=== PATIENT | male | born 1955 | race Caucasian/White ===

== ENCOUNTER 2021-09-30 10:54 | Emergency (ER) | payer SELFPAY ==
--- OUTSIDE RECORDS SUMMARY | 2021-09-30 10:58 | XMS REPORT | Continuity of Care Document ---
:1955 Author Organization [facility] Address [address] [place] [address] Care Team Providers Name Role Phone FOUND, PCP NOT Primary Care Physician Unavailable IP Attending Clinician Unavailable Advance Directives Directive Decision Effective Date Termination Date Comments Sour ce Yes N/A [facility] Problems This patient has no known problems. Allergies, Adverse Reactions, Alerts Allergy Allergy Status Severity Reaction(s) Onset Inactive Treating Comm ents Source Name Type Date Date Clinician NO Allergy Active Mild [facility] KNOWN to 05-09 S DRUG substanc 00:00: Health ALLERGY e 00 Social History Social Habit Start Date Stop Date Quantity Comments Source History of tobacco [facility] [place] use Sex Ass[birth year] Male [facility] 00:00:00 00:00:00 Smoking Status Start Date Stop Date Source Smokes tobacco daily (finding) 2021-05-16 22:03:00 [facility] [place] Medications Ordered Filled Start Stop Current Ordering Indication Dosage Frequency Signature Comments Components Source Medication Medication Date Date Medication? Clinician (SIG) Name Name Ketorolac 2019-0 2020- No 10mg Every 8 CH[facility] LALIT Tromethamin - 05-26 Hours S e (Toradol) 12:36: 00:00 Healt h 10 Mg TAB 00 :00 Ciprofloxac 2020-0 2020- No 500mg Every 12 [facility] in (Cipro) 5- 05-29 Hours S 500 Mg TAB 12:33: 00:00 Health 00 :00 Ondansetron 2020-0 No 4mg Every 8 CH[facility] ISTU Hcl (Zofran 5-21 Hours as S Odt) 4 Mg 12:04: needed for He alth TAB.RAPDIS 00 Nausea / Vomiting Acetaminoph 2020-0 2020- No 1 Every 6 CH RISTU en/Codeine 5-21 06-21 Hours as S Phosphate 12:04: 00:00 needed for H ealth (Tylenol 00 :00 Pain #3) 1 Tab TAB Meclizine No 25mg Three [facility] Hcl 8-22 Times A S (Antivert) 21:32: Day Health 25 Mg TAB 00 Prednisone No 1 As [facility] (Prednisone 04-08 Directed S Dose-Gurjit) 21:32: Health 10 Mg TAB 00 Azithromyci 2018- No 1 As EFRAIN TU n 04-08 Directed S (Zithromax 21:32: 00:00 Health Z-Gurjit) 6 00 :00 Tab/Pkg TAB Clindamycin No 3 Four Times [facility] Hcl 3-11 Daily S (Cleocin) 19:48: Health 150 Mg CAP 00 Erythromyci No 1 Four Times [facility] n 3-11 Daily S (Erythromyc 19:48: Health in 0.5% Oph 00 Oint) 1 Applic/Gm OINT Clindamycin 2016- No 3 Four Times [facility] Hcl 3-11 03-11 Daily S (Cleocin) 19:40: 00:00 Health 150 Mg CAP 00 :00 Erythromyci 2017- No 1 Four Times [facility] n 3-11 03-11 Daily S (Erythromyc 19:40: 00:00 Healt h in 0.5% Oph 00 :00 Oint) 1 Applic/Gm OINT Amlodipine No 5mg Every ANGUS U Besylate 8-17 Morning S (Norvasc) 20:09: Health 2.5 Mg TAB 00 Amoxicillin No 500mg Three CHRI LALIT (Amoxil) 5-06 Times A S 500 Mg CAP 18:50: Day Health 00 Acetaminoph 2008-08 No 1 Every 4 - C HRISTU en/Hydrocod 0-13 6 Hours S one Bitart 13:37: Health (Vicodin 00 5-500) 1 Tab TAB Ciprofloxac 2008-08 No [drp] Three CHRI LALIT in Hcl 0-13 Times A S (Ciloxin 13:36: Day Health 0.3% Oph 00 Soln) 75 Drop/5 Ml SOLN Hydrochloro No 25mg Every EFRAIN TU thiazide 8-06 Morning S (Hydrodiuri 05:15: Health l) 25 Mg 00 TAB Acetaminoph No 1 Every 4 - C HRISTU en/Hydrocod 8-06 6 Hours S one Bitart 04:48: Health (Lortab 00 7.5-500) 1 Tab TAB Amlodipine No 1 Daily ANGUS U Besylate 8-06 S (Norvasc) 04:47: Health 10 Mg TAB 00 Loratadine 2007-08 No 1 Daily ANGUS U (Claritin) 1 S 10 Mg TAB 06:34: Health 00 Methylpredn 2007-08 No 1 As ANGUS U isolone - Directed S (Medrol 06:34: Health Pack) 21 00 Tab/Dspk TAB Omeprazole 2007-08 No 40mg Daily ANGUS U (Prilosec) 09-12 S 40 Mg CPDR 06:34: Health 00 Triamcinolo 2007-08 No 1 Bid Prn [facility] I[facility]U ne 09-12 S Acetonide 06:33: Health (Kenalog 00 0.5% Cream) 1 Applic/Gm CR Amlodipine 2006-08 No 1 Every ANGUS U Besylate 2-15 Morning S (Norvasc) 5 14:57: Health Mg TAB 00 Vital Signs Vital Name Observation Time Observation Value Comments Source BP Diastolic 2021-05-17 00:05:00 87 mm[Hg] [facility] BP Systolic 2021-05-17 00:05:00 135 mm[Hg] [facility] Respiratory rate 2021-05-16 21:24:00 20 /min [facility] Body Temperature 2021-05-16 21:24:00 98.5 [degF] [facility] BP Diastolic 2021-05-16 21:24:00 92 mm[Hg] [facility] BP Systolic 2021-05-16 21:24:00 125 mm[Hg] [facility] Heart Rate 2021-05-16 21:24:00 81 /min [facility] BP Diastolic 2021-05-16 21:10:00 92 mm[Hg] [facility] BP Systolic 2021-05-16 21:10:00 125 mm[Hg] [facility] Heart Rate 2021-05-16 21:10:00 81 /min [facility] Respiratory rate 2021-05-16 21:10:00 20 /min [facility] Body Temperature 2021-05-16 21:10:00 98.5 [degF] [facility] Procedures Procedure Date / Time Performed Performing Clinician Robert e Computed tomography of 2021-05-16 00:00:00 [facility] lungs with intravenous contrast Computed tomography of 2021-05-16 00:00:00 [facility] abdomen and pelvis with contrast Encounters Start End Encounter Admission Attending Care Care Encounter Source Date/Time Date/Time Type Type Clinicians Facility Department ID 2020-01-07 Inpatient BIANKA CARLTON [id number] [facility] 10:37:00 [id number] [facility] 2020-01-06 Inpatient BIANKA CARLTON [id number] [facility] 10:27:00 [id number] [facility] 2021-05-16 2021-05-17 Emergency ER IP, LORENZO CARLTON [id number] [facility] 21:47:00 00:05:00 [id number] [facility] 2021-05-16 2021-05-17 Departed YEIMY CARLTON [id number] [facility] 21:47:00 00:05:[address] [facility] Results Test Description Test Time Test Comments Results Result Comments Source Automated blood leukocyte count (number/volume) 2021-05-16 2 1:40:00 Test Item Value Reference Range Interpretation Comme nts White Blood Count (test code = 6690-2) 9.0 4.5-11.5 [facility] erythrocytes automated count (number/volume)2021-05-16 21:40:00 Test Item Value Reference Range Interpretation Comments Red Blood Count (test code = 789-8) 4.86 4.4-6.2 [facility] hemoglobin measurement (mass/volume)2021-05-16 21:40:00 Test Item Value Reference Range Interpretation Comments Hemoglobin (test code = 718-7) 14.2 13.0-17.5 [facility] HealthAutomated blood hematocrit (volume fraction)2021-05-16 21:40:00 Test Item Value Reference Range Interpretation Comments Hematocrit (test code = 4544-3) 43.3 39.0-52.5 [facility] HealthAutomated erythrocyte mean corpuscular volume (MCV) measurement 2021-05-16 21:40:00 Test Item Value Reference Range Interpretation Comments Mean Corpuscular Volume (test code = 89 80-94 787-2) [facility]Automated erythrocyte mean corpuscular hemoglobin (mass per erythrocyte)2021-05-16 21:40:00 Test Item Value Reference Range Interpretation Comments Mean Corpuscular Hemoglobin (test code 29.2 27.0-33.0 = 785-6) [facility] HealthAutomated erythrocyte mean corpuscular hemoglobin concentration measurement (mass/volume)2021-05-16 21:40:00 Test Item Value Reference Range Interpretation Comments Mean Corpuscular Hemoglobin Concent 32.8 33.0-37.0 (test code = 786-4) [facility] HealthAutomated erythrocyte distribution width [id number] 21:40:00 Test Item Value Reference Range Interpretation Comments Red Cell Distribution Width (test code 13.5 10.7-14.5 = 788-0) [facility] HealthAutomated blood platelet count (count/volume)2021-05-16 21:40:00 Test Item Value Reference Range Interpretation Comments Platelet Count (test code = 777-3) 234 150-450 [facility] HealthAutomated blood platelet mean volume [id number] 21:40:00 Test Item Value Reference Range Interpretation Comments Mean Platelet Volume (test code = 10.6 5.7-10.7 73455-9) [facility] HealthAutomated blood neutrophil count as percentage of total uehvzywdxp8082-94-28 21:40:00 Test Item Value Reference Range Interpretation Comments Neutrophils (%) (Auto) (test code = 62 47-75 770-8) [facility] HealthAutomated blood immature granulocyte count as percentage of total hqmpuwnypb5668-32-50 21:40:00 Test Item Value Reference Range Interpretation Comments Immature Granulocyte % (Auto) (test 0 0-0 code = 14325-9) [facility] HealthAutomated blood lymphocyte count as percentage of total hptxiydvcr0952-33-05 21:40:00 Test Item Value Reference Range Interpretation Comments Lymphocytes (%) (Auto) (test code = 28 25-44 736-9) [facility] HealthAutomated blood monocyte count as percentage of total leukocytes 2021-05-16 21:40:00 Test Item Value Reference Range Interpretation Comments Monocytes (%) (Auto) (test code = 7 3-10 5905-5) [facility] HealthAutomated blood eosinophil count as percentage of total rtayljdklu3037-17-32 21:40:00 Test Item Value Reference Range Interpretation Comments Eosinophils (%) (Auto) (test code = 3 0-7 713-8) [facility] HealthAutomated blood basophil count as percentage of total leukocytes 2021-05-16 21:40:00 Test Item Value Reference Range Interpretation Comments Basophils (%) (Auto) (test code = 1 0-1 706-2) [facility] HealthAutomated blood nucleated erythrocyte count as percentage of total nrcrveqvmd6748-76-58 21:40:00 Test Item Value Reference Range Interpretation Comments Nucleated Red Blood Cells % (test code 0.0 0-0.2 = 22519-0) [facility] HealthAutomated blood neutrophil count (number/volume)2021-05-16 21:40:00 Test Item Value Reference Range Interpretation Comments Neutrophils # (Auto) (test code = 5.6 1.3-6.7 751-8) [facility] HealthAutomated blood immature granulocyte count as percentage of total etxxavsljo8143-14-29 21:40:00 Test Item Value Reference Range Interpretation Comments Immature Granulocyte # (Auto) (test 0.0 0.0-0.0 code = 99066-9) [facility] HealthAutomated blood lymphocyte count (number/volume)2021-05-16 21:40:00 Test Item Value Reference Range Interpretation Comments Lymphocytes # (Auto) (test code = 2.5 1.4-4.1 731-0) [facility] (number/volume)2021-05-16 21:40:00 Test Item Value Reference Range Interpretation Comments Monocytes # (Auto) (test code = 742-7) 0.6 0-1.3 [facility] HealthAutomated blood eosinophil [id number] 21:40:00 Test Item Value Reference Range Interpretation Comments Eosinophils # (Auto) (test code = 0.2 0-0.8 711-2) [facility] HealthAutomated blood basophil count (number/volume)2021-05-16 21:40:00 Test Item Value Reference Range Interpretation Comments Basophils # (Auto) (test code = 704-7) 0.1 0-0.1 [facility] HealthAutomated blood nucleated erythrocyte count (count/volume) 2021-05-16 21:40:00 Test Item Value Reference Range Interpretation Comments Nucleated Red Blood Cells # (test code 0.00 0-0.01 = 771-6) [facility] HealthService comment [id number] 21:40:00 Test Item Value Reference Range Interpretation Comments Manual Differential (test code = Not Ind 8265-1) [facility] HealthProthrombin [id number] 21:40:00 Test Item Value Reference Range Interpretation Comments Prothrombin Time (test code = 5902-2) 11.9 9.4-12.5 [facility] HealthINR [id number] 21:40:00 Test Item Value Reference Range Interpretation Comments Prothromb Time International Ratio 1.1 0.8-1.2 (test code = 6301-6) [facility] HealthaPTT [id number] 21:40:00 Test Item Value Reference Range Interpretation Comments Activated Partial Thromboplast Time 32.7 25.1-36.5 (test code = 02272-7) [facility] HealthSodium SutId-[id number] 21:40:00 Test Item Value Reference Range Interpretation Comments Sodium Level (test code = 2951-2) 142 136-145 [facility] HealthSerum or plasma potassium measurement (moles/volume)2021-05-16 21:40:00 Test Item Value Reference Range Interpretation Comments Potassium Level (test code = 2823-3) 4.2 3.5-5.1 [facility] HealthSerum or plasma chloride measurement (moles/volume)2021-05-16 21:40:00 Test Item Value Reference Range Interpretation Comments Chloride Level (test code = 2075-0) 108 98-107 [facility] HealthSerum or plasma total carbon dioxide measurement (moles/volume) 2021-05-16 21:40:00 Test Item Value Reference Range Interpretation Comments Carbon Dioxide Level (test code = 23-31 2027-) [facility] HealthSerum or plasma anion gap determination (moles/volume)2021-05-16 21:40:00 Test Item Value Reference Range Interpretation Comments Anion Gap (test code = 66515-4) 12 8-18 [facility] HealthSerum or plasma urea nitrogen measurement (mass/volume)2021-05-16 21:40:00 Test Item Value Reference Range Interpretation Comments Blood Urea Nitrogen (test code = 04-12 3094-0) [facility] HealthSerum or plasma creatinine measurement (mass/volume)2021-05-16 21:40:00 Test Item Value Reference Range Interpretation Comments Creatinine (test code = 2160-0) 0.9 0.7-1.3 [facility] HealthGFR/BSA.pred SerPl [id number] 21:40:00 Test Item Value Reference Range Interpretation Comments Estimat Glomerular Filtration Rate 90 60-110 (test code = 25154-5) [facility] HealthSerum or plasma glucose measurement (mass/volume)2021-05-16 21:40:00 Test Item Value Reference Range Interpretation Comments Glucose Level (test code = 2345-7) 92 60-100 [facility] HealthSerum or plasma calcium measurement (mass/volume)2021-05-16 21:40:00 Test Item Value Reference Range Interpretation Comments Calcium Level (test code = 70240-3) 9.7 8.8-10.0 [facility] HealthSerum or plasma total bilirubin measurement (mass/volume) 2021-05-16 21:40:00 Test Item Value Reference Range Interpretation Comments Total Bilirubin (test code = 1975-2) 0.9 0.2-1.2 [facility] HealthSerum or plasma aspartate aminotransferase measurement (enzymatic activity/volume)2021-05-16 21:40:00 Test Item Value Reference Range Interpretation Comments Aspartate Amino Transf (AST/SGOT) (test 21 -34 code = 1920-8) [facility] HealthSerum or plasma alanine aminotransferase measurement (enzymatic activity/volume)2021-05-16 21:40:00 Test Item Value Reference Range Interpretation Comments Alanine Aminotransferase (ALT/SGPT) 14 0-55 (test code = 1742-6) [facility] HealthSerum or plasma protein measurement (mass/volume)2021-05-16 21:40:00 Test Item Value Reference Range Interpretation Comments Total Protein (test code = 2885-2) 7.4 5.8-7.6 [facility] HealthSerum or plasma albumin measurement (mass/volume)2021-05-16 21:40:00 Test Item Value Reference Range Interpretation Comments Albumin (test code = 1751-7) 4.5 3.2-4.7 [facility] HealthSerum or plasma alkaline phosphatase measurement (enzymatic activity/volume)2021-05-16 21:40:00 Test Item Value Reference Range Interpretation Comments Alkaline Phosphatase (test code = 57 40-150 6768-6) [facility] [id number] 06:18:[address] [address]QUUBSDLHIK IMAGING REPORTPat ient Name: DIGNA PARHAM FDate of Service: [id number]: 64 Sex: M Order #: [id number]: ERSDOB: 1955 X-Ray Number: [id number] Record Number: [id number] Hospital Number: [id number] Physician: AVE BROWNOrdering Physician: AVE BROWNPROCEDURE:CT ABDOMEN/PELVIS WITHOUTINDICATIONS: Dx: Flank pain - leftPt sts: Left flank pain x2 days and worsetonight.Hx: HTN, kidney stonesPSV: SANEXAM: CT OF ABDOMEN/PELVIS WITHOUT CONTRAST:COMPARISON:NoneTECHNIQUE: Enteric contrast was not administered prior to exam.Contiguous axial images from lung bases through ischial tuberosities, withsagittal and coronal reformatted images.FINDINGS:The lung bases areclear. No pleural effusion identified.The adrenals are unremarkable.A solitary small mid pole calyceal stone is present on the left,approximately 3 mm diameter. No ureteral stone or hydronephrosis isv isualized current time. The kidneys are otherwise unremarkable.Gallbladder and bile ducts unremarkable.No abnormality of liver, spleen, or pancreas identified.Aorta and inferior vena cava unremarkable.No adenopathy or ascites is identified.Stomach and small bowel structures are unremarkable.No appendiceal abnormality is appreciated.No significant large bowel pathology is appreciated.Pelvic soft tissue structures are normal appearing. No stone isidentified within the urinary bladder.No significant bone lesion is identified.IMPRESSION:Small nonobstructing left renal stone. No ureteral stone orhydronephrosis currently visualized.This document has been electronically signed by: Barbara Salas 05/15/2019 06:18:17Legally authenticated by FRED HESTER 2019-05-15 05:27:[id number] 05:49:00 Test Item Value Reference Range Interpretation Comments GLUCOSE (test code = URGLU) NEGATIVE MG/DL NEG-100 BILIRUBN (test code = URBILI) NEGATIVE NEGATIVE KETONE (test code = URKET) NEGATIVE MG/DL NEGATIVE BLOOD (test code = URBLD) NEGATIVE UR PH (test code = URPH) 6.0 5.0-7.5 PROTEIN (test code = URPRO) NEGATIVE MG/DL NEGATIVE NITRITES (test code = URNIT) NEGATIVE NEGATIVE UROBILINGEN (test code = 0.2 EU/DL 0.2-1.0 URURO) LEUKOCYT (test code = URLEU) NEGATIVE NEGATIVE UA COLOR (test code = UA YELLOW YELLOW COLOR) CLARITY (test code = CLARITY) CLEAR CLEAR SP GRAV (test code = URSPGRAV) 1.019 1.000-1.025 UAMICRO (test code = UAMICRO) NO [id number] 05:40:00 Test Item Value Reference Range Interpretation Comments LIPASE (test code = LIPA) 42 U/L 23-300 LIVER [id number] 05:40:00 Test Item Value Reference Range Interpretation Comments TOTPROT (test code = TOTPROT) 7.9 G/DL 6.3-8.2 ALBUMIN (test code = ALBSERUM) 4.7 G/DL 3.5-5.0 BILITOT (test code = BILITOT) 0.7 MG/DL 0.2-1.3 BILIDIR (test code = BILIDIR) 0.3 MG/DL 0.0-0.4 AST (test code = AST) 23 U/L 15-46 PHOSALK (test code = PHOSALK) 60 U/L 38-126 ALT (test code = ALT) 16 U/L 13-69 [id number] 05:20:00 Test Item Value Reference Range Interpretation Comments WBC (test code = 8.5 K/UL 3.5-10.9 WBC) RBC (test code = 5.04 M/UL 4.3-5.7 RBC) HGB (test code = 15.1 G/DL 13.0-17.9 HGB) HCT (test code = 44.1 % 38-52 HCT) MCV (test code = 87.5 FL 80-98 MCV) MCH (test code = 30.0 PG 28-32 MCH) MCHC (test code = 34.2 G/DL 32.5-36.5 MCHC) RDW (test code = 13.6 % 11.5-14.5 RDW) PLT (test code = 204 K/UL 150-450 PLT) MPV (test code = 10.2 FL 7.4-10.4 MPV) MANDIFF (test code = NO MANDIFF) SCAN (test code = NO SCAN) NEUT% (test code = 51.3 % 40-75 NEUT%) LYMPH% (test code = 34.2 % 24-44 LYMPH%) MONO% (test code = 10.1 % 0-13 MONO%) EOS% (test code = 3.5 % 0-4 EOS%) BASO % (test code = 0.7 % 0-2 BASO%) IG (test code = IG) 0 % 0-1 IG% (test code = 0.2 % 0-1 IG% = Metam yelocytes, IG%) Myelocytes, and Promyelocytes. (Immature neutr ophils not including " bands".) > 3% IG indic ates risk of sepsis NRBC% (test code = 0 /100 WBC NRBC%) ABS NEUT (test code 4.4 K/UL 1.2-7.2 = NEUT) ISTAT CHEM [id number] 05:15:00 Test Item Value Reference Range Interpretation Comments ISTATNA (test code = 142 MMOL/L 137-145 ISTATNA) ISTATK (test code = 4.0 MMOL/L 3.6-5.0 ISTATK) ISTATCL (test code = 102 MMOL/L 98-107 ISTATCL) ISTIONCA (test code = 1.24 MMOL/L 1.12-1.32 ISTIONCA) ISTCO2 (test code = 26 MMOL/L 22-30 ISTCO2) ISTATGLU (test code = 99 MG/DL 65-110 ISTATGLU) ISTATBUN (test code = 12.0 MG/DL 7.0-20.0 ISTATBUN) ISTCREA (test code = 0.8 MG/DL 0.7-1.5 ISTCREA) ISTATHCT (test code = 46 %PCV 37.0-52.0 ISTATHCT) ISTATHGB (test code = 15.6 G/DL 12.0-18.0 Notifi ed Nurse/MD of [facility]) results outside of Reference Range s ISTANOKLAUNION (test code = 19 MMOL/L Notifi ed Nurse/MD of [facility]) results outside of Reference Range s
[2021-09-30 11:29] LABS: Absolute Lymphocytes (CBC) 0.7 K/uL (0.7-4.9); Hematocrit 51.5 % (39.6-49.0); MPV 8.6 fL (7.6-11.3); RBC Red Blood Cell Count 5.89 M/uL (4.33-5.43)
[2021-09-30 11:37] LABS: Albumin 4.5 g/dL (3.4-5.0); Bilirubin Direct 0.2 mg/dL (0-0.2); Bilirubin Total 0.7 mg/dL (0.2-1.0); Potassium 3.3 mmol/L (3.5-5.1); Protein, Total 8.4 g/dL (6.4-8.2); Troponin High Sensitivity 11.1 pg/mL (<58.9)
[2021-09-30] MEDS ORDERED: ONDANSETRON 4 MG/2 ML VIAL ONE (12:02)
[2021-09-30] MEDS ORDERED: MORPHINE 4 MG/ML SYR ONE (12:02)
[2021-09-30 12:13] LABS: Protime INR 0.99
--- NOTE | 2021-09-30 12:23 | RAD REPORT ---
EXAM DESCRIPTION: RAD - Chest Single View - 09/30/2021 11:42 am CLINICAL HISTORY: CHEST PAIN, long smoking history COMPARISON: None TECHNIQUE: AP portable chest image was obtained 09/30/2021 11:42 am . FINDINGS: No focal mass or consolidation. Hilar regions are within range of normal. Patient has a mi ldly prominent interstitial pattern is probably baseline. Minimal interstitial edema or infiltrate co uld be masked. Heart and vasculature are normal. No measurable pleural effusion and no pneumothorax. No acute bony abnormality seen. No acute aortic findings suspected. IMPRESSION: No acute cardiopulmonary process. Mildly prominent interstitial pattern probably baseline. Minimal interstitial edema or infiltrate cou ld potentially be masked.
--- NOTE | 2021-09-30 12:32 | RAD REPORT ---
EXAM DESCRIPTION: US - Abdomen Exam Limited - 09/30/2021 12:16 pm CLINICAL HISTORY: ABD PAIN COMPARISON: No comparisons FINDINGS: No gallstones were identified. A minimal amount of sludge is seen within the lumen of a no rmal-sized gallbladder. There is no wall thickening or pericholecystic fluid. No common duct stone or biliary tree dilatation identified. Partially imaged liver shows nodular contour and coarsened echogenicity consistent with cirrhosis. IMPRESSION: Minimal amount of sludge within a normal-sized gallbladder. No gallstones or other acute gallbladder finding. No duct stone or biliary tree dilatation identifiable.
[2021-09-30] MEDS ORDERED: DIPHENHYDRAMINE 50 MG/ML VIAL ONE (12:52)
[2021-09-30] MEDS ORDERED: dexAMETHasone 10 MG/ML VIAL ONE (12:52)
[2021-09-30] MEDS ORDERED: FAMOTIDINE 20 MG/2 ML VIAL IV ONE (12:52)
[2021-09-30 13:00] LABS: SARS-COV-2 RT PCR NEGATIVE (NEGATIVE)
--- NOTE | 2021-09-30 13:54 | RAD REPORT ---
EXAM DESCRIPTION: CT - Chest For Pe Angio - 09/30/2021 1:07 pm CLINICAL HISTORY: CHEST PAIN COMPARISON: No comparisons TECHNIQUE: Dynamically enhanced 3 mm thick images of the chest were obtained during administration o f approximately 150mL Isovue 370 IV contrast. Coronal and oblique MIP reconstruction images were gene rated and reviewed. Exam utilizes a protocol to evaluate the pulmonary arterial tree. All CT scans are performed using dose optimization technique as appropriate and may include automated exposure control or mA/KV adjustment according to patient size. FINDINGS: No pulmonary emboli are identified. The aorta as imaged shows no acute or suspicious finding. Scattered aortic arterial wall atherosclero tic calcifications present. Aorta was imaged down to the bifurcation. No renal or mesenteric artery s ignificant finding. No pericardial thickening or effusion. No infiltrate or mass in the lung parenchyma. No pleural effusion or pleural thickening. No mediastinal or hilar abnormal lymph nodes or clearly defined mass. A few small nonspecific lymph n odes are present. Esophageal oliver appear thickened. There is fluid within the lumen of the esophagus to the upper thoracic level. Partially imaged upper abdomen shows fluid distended stomach. No chest wall masses or abnormal axillary lymphadenopathy. IMPRESSION: No pulmonary emboli identified. No acute lung parenchymal process identified. Oliver of the esophagus appear thickened and there is fluid within the lumen probably reflux from the stomach.Esophageal assessment is limited on CT imaging.
--- NOTE | 2021-09-30 13:58 | RAD REPORT ---
EXAM DESCRIPTION: CT - Abdomen Pelvis W Contrast - 09/30/2021 1:24 pm CLINICAL HISTORY: ABD PAIN COMPARISON: Abdomen Exam Limited dated 09/30/2021 TECHNIQUE: Biphasic, helical CT imaging of the abdomen and pelvis was performed following 100 ml non -ionic IV contrast. No oral contrast was administered. All CT scans are performed using dose optimization technique as appropriate and may include automated exposure control or mA/KV adjustment according to patient size. FINDINGS: No suspicious findings in the lung bases. No focal liver lesion. Portal vein is normal. Subtle nodularity seen in the liver capsule. Benign jany cifications seen in the anterior right lobe. No pancreatic or peripancreatic process seen. Spleen is unremarkable. Gallbladder and biliary tree are also without suspicious finding. Symmetric renal function is seen with no hydronephrosis or suspicious renal mass. No pyelonephritis o r acute parenchymal process. No bladder abnormalities. No adrenal abnormalities. Distal esophageal oliver show circumferential thickening. No mass at the GE junction identifiable. The CT chest study showed evidence for circumferential wall thickening throughout most of the esophagus. No one discrete area of mass could be confirmed. Fluid distends the stomach. Oliver of the antrum are mildly thickened. This is usually a peristalsis artifact. Antritis and proximal duodenitis cannot be excluded. Distal duodenum and remainder of the small bowel unremarkable. The appendix is normal. The re are no acute colon findings. Diverticulosis on the left side is minimal. No free air, free fluid or inflammatory stranding. No mass or bulky lymphadenopathy. No omental th ickening. Small bilateral fat filled inguinal hernias are present. Disc and bone degenerative changes are present. No acute findings seen. Aortoiliac atherosclerotic calcifications are present without displaced calcification were aneurysmal dilatation. IMPRESSION: Circumferential wall thickening of the distal thoracic esophagus. CT study showed esopha geal wall thickening throughout most of the thoracic esophagus. Esophagitis would be a consideration and can be correlated with clinical presentation. No one area of more masslike thickening seen. Fluid distended stomach with questionable wall thickening of the antrum and duodenal bulb. This is of ten a peristalsis artifact. Antritis/ duodenitis would be possible. No obstruction, free air or emergent CT abdomen or pelvis finding.
[2021-09-30 14:49] LABS: Blood Morphology Comment NOT SEEN (NOT SEEN); Platelet Estimate ADEQ; White Blood Cell Scan OK (OK)
--- NOTE | 2021-09-30 15:05 | EDPHYS ---
Physician Documentation [facility] Name: Rich Mota Jr Age: 66 yrs Sex: Male : 1955 Arrival Date: 09/30/2021 Time: 10:56 Bed 20 Private MD: ED Physician Walter Martinez HPI: 09/30 11:00 This 66 yrs old Male presents to ER via Ambulatory with complaints of Chest Pain, Chest jmm Tightness, Vomiting. 11:00 The patient or guardian reports chest pain that is located primarily in the epigastric jmm area, anterior chest wall. Onset: acutely, last night. The pain does not radiate. The chest pain is described as aching. This is a 66-year-old male with history of hypertension the presents emerged department with complaints of anterior chest pain which radiates up the chest midline. This developed soon before the patient did develop some vomiting. Patient admits to drinking alcohol last night. Denies shortness of breath.. Historical: - Allergies: 11:07 Iodine; jl7 - PMHx: 11:07 Hypertensive disorder; Prostate problems; jl7 - Immunization history:: Client reports having NOT received the Covid vaccine. - Social history:: Smoking status: Patient reports the use of cigarette tobacco products, smokes one pack cigarettes per day. ROS: 11:00 Constitutional: Negative for fever, chills, and weight loss. jmm 11:00 Cardiovascular: Positive for chest pain. 11:00 Respiratory: 11:00 Abdomen/GI: Positive for abdominal pain, nausea and vomiting. 11:00 All other systems are negative. Exam: 11:00 Constitutional: This is a well developed, well nourished patient who is awake, alert, jmm and in no acute distress. Head/Face: atraumatic. Eyes: EOMI, no conjunctival erythema appreciated ENT: Moist Mucus Membranes Neck: Trachea midline, Supple Chest/axilla: Normal chest wall appearance and motion. Cardiovascular: Regular rate and rhythm. No edema appreciated Respiratory: Normal respirations, no respiratory distress appreciated Abdomen/GI: Non distended, soft Back: Normal ROM Skin: General appearance color normal MS/ Extremity: Moves all extremities, no obvious deformities appreciated, no edema noted to the lower extremities Neuro: Awake and alert Psych: Behavior is normal, Mood is normal, Patient is cooperative and pleasant Vital Signs: 11:05 BP 170 / 104; Pulse 100; Resp 17; Temp 98; Pulse Ox 100% ; Weight 86.18 kg; Height 5 7 ft. 10 in. (177.80 cm); Pain 10/10; 12:26 BP 165 / 114; Pulse 89; Resp 18; Pulse Ox 96% on R/A; hdez 14:56 BP 149 / 94; Pulse 88; Resp 18; Pulse Ox 99% on R/A; hdez 11:05 Body Mass Index 27.26 (86.18 kg, 177.80 cm) 7 MDM: 11:18 Patient medically screened. [facility] 15:02 Data reviewed: vital signs, nurses notes, lab test result(s), EKG, radiologic studies, [facility] CT scan, plain films, ultrasound. Refusal of service: The patient/guardian displays adequate decision making capability and despite a detailed discussion of alternatives, benefits, risks, and consequences refuses: Admission to the hospital for further work-up and treatment. ED course: Pain is relieved in the ED. Labs unremarkable as far as cardiac enzyme elevation. I did discuss with the patient the possibility that he may still have a cardiac event but patient declined admission. Appeared to be able to make rational decisions.. 09/30 10:59 Order name: Basic Metabolic Panel [facility] 09/30 10:59 Order name: CBC with Diff; Complete Time: 14:50 [facility] 09/30 10:59 Order name: LFT's [facility] 09/30 10:59 Order name: Magnesium; Complete Time: 11:38 [facility] 09/30 10:59 Order name: NT PRO-BNP; Complete Time: 11:38 [facility] 09/30 10:59 Order name: PT-INR; Complete Time: 12:18 [facility] 09/30 10:59 Order name: Troponin HS; Complete Time: 11:38 [facility] 09/30 10:59 Order name: XRAY Chest (1 view); Complete Time: 12:24 [facility] 09/30 10:59 Order name: COVID-19/FLU A+B (Document "Date of Onset" if Symptomatic); Complete Time: [facility] 13:12 09/30 11:00 Order name: Basic Metabolic Panel; Complete Time: 11:38 [facility] 09/30 11:00 Order name: Liver (Hepatic) Function; Complete Time: 11:38 [facility] 09/30 11:22 Order name: Lipase; Complete Time: 12:31 [facility] 09/30 11:37 Order name: US Abdomen Limited; Complete Time: 12:37 [facility] 09/30 14:49 Order name: CBC Smear Scan; Complete Time: 14:50 [facility] 09/30 10:59 Order name: EKG; Complete Time: 11:00 [facility] 09/30 10:59 Order name: Cardiac monitoring; Complete Time: 11:15 [facility] 09/30 10:59 Order name: EKG - Nurse/Tech; Complete Time: 11:04 [facility] 09/30 10:59 Order name: IV Saline Lock; Complete Time: 11:15 [facility] 09/30 10:59 Order name: Labs collected and sent; Complete Time: 11:15 [facility] 09/30 10:59 Order name: O2 Per Protocol; Complete Time: 11:16 [facility] 09/30 10:59 Order name: O2 Sat Monitoring; Complete Time: 11:16 [facility] 09/30 12:38 Order name: CT Chest For PE Angio; Complete Time: 13:57 [facility] 09/30 12:38 Order name: CT Abd/Pelvis - IV Contrast Only; Complete Time: 14:00 [facility] Administered Medications: 12:06 Drug: Zofran (Ondansetron) 4 mg Route: IVP; Site: left antecubital; hdez 12:07 Follow up: Response: No adverse reaction hdez 12:06 Drug: morphine 4 mg Route: IVP; Site: left antecubital; hdez 12:06 Follow up: Response: No adverse reaction hdez 12:53 Drug: Pepcid (famotidine) 20 mg Route: IVP; Site: left antecubital; hdez 12:54 Follow up: Response: No adverse reaction hdez 12:53 Drug: diphenhydrAMINE 25 mg Route: IVP; Site: left antecubital; hdez 12:54 Follow up: Response: No adverse reaction hdez 12:54 Drug: Decadron - Dexamethasone 10 mg Route: IVP; Site: left antecubital; hdez 12:54 Follow up: Response: No adverse reaction hdez Disposition: 19:28 Co-signature as Attending Physician, Walter Martinez MD I agree with the assessment and kdr plan of care. Disposition Summary: 09/30/21 15:05 Discharge Ordered Location: Home [facility] Condition: Stable jmm Diagnosis - Chest pain, unspecified jmm - Esophagitis, unspecified jmm Followup: [facility] - With: Lavon Mcintosh MD - When: 2 - 3 days - Reason: Recheck today's complaints, Continuance of care, Re-evaluation by your physician Discharge Instructions: - Discharge Summary Sheet jmm - Nonspecific Chest Pain, Adult jmm - Esophagitis jm Forms: - Medication Reconciliation Form [facility] - Thank You Letter [facility] - Antibiotic Education [facility] - Prescription Opioid Use [facility] Prescriptions: - Carafate 100 mg/mL Oral suspension - take 10 milliliter by ORAL route 4 times per day on an empty stomach 1 hour jmm before meals and at bedtime; 200 milliliter; Refills: 0, Product Selection Permitted - Pepcid 20 mg Oral Tablet - take 1 tablet by ORAL route every 12 hours for 10 days; 20 tablet; Refills: 0, [facility] Product Selection Permitted - ondansetron 4 mg Oral tablet,disintegrating - take 1 tablet by ORAL route every 4-6 hours; 20 tablet; Refills: 0, Product [facility] Selection Permitted Signatures: Dispatcher [employer] [facility] Walter Martinez MD MD kdr Mickail, Joel, PA PA [facility] Humza Meneses RN RN jl7 Anna-Amber Lutz RN RN hdez
--- NOTE | 2021-09-30 15:05 | ER ---
Nurse's Notes [facility] Name: Rich Mota Jr Age: 66 yrs Sex: Male : 1955 Arrival Date: 09/30/2021 Time: 10:56 Bed 20 Private MD: Diagnosis: Chest pain, unspecified;Esophagitis, unspecified Presentation: 09/30 11:05 Chief complaint: Patient states: Midsternal CP and vomiting since last night, "Kind of jl7 feels like severe indigestion but it wont go away.". Coronavirus screen: At this time, the client does not indicate any symptoms associated with coronavirus-19. Ebola Screen: No symptoms or risks identified at this time. Initial Sepsis Screen: Does the patient meet any 2 criteria? No. Patient's initial sepsis screen is negative. Does the patient have a suspected source of infection? No. Patient's initial sepsis screen is negative. Risk Assessment: Do you want to hurt yourself or someone else? Patient reports no desire to harm self or others. Onset of symptoms was September 29, 2021. 11:05 Method Of Arrival: Ambulatory jl7 11:05 Acuity: JULIA 2 jl7 Triage Assessment: 11:07 General: Appears in no apparent distress. uncomfortable, Behavior is calm, cooperative, jl7 appropriate for age, anxious. Pain: Complains of pain in chest Pain currently is 10 out of 10 on a pain scale. Cardiovascular: Patient's skin is warm and dry. Historical: - Allergies: 11:07 Iodine; jl7 - PMHx: 11:07 Hypertensive disorder; Prostate problems; jl7 - Immunization history:: Client reports having NOT received the Covid vaccine. - Social history:: Smoking status: Patient reports the use of cigarette tobacco products, smokes one pack cigarettes per day. Screenin:27 Abuse screen: Denies threats or abuse. Denies injuries from another. Nutritional hdez screening: No deficits noted. Tuberculosis screening: No symptoms or risk factors identified. Fall Risk None identified. IV access (20 points). Assessment: 12:27 Pain: Pain radiates to chest Pain began gradually. Cardiovascular: Reports chest pain, hdez vomiting. Vital Signs: 11:05 BP 170 / 104; Pulse 100; Resp 17; Temp 98; Pulse Ox 100% ; Weight 86.18 kg; Height 5 jl7 ft. 10 in. (177.80 cm); Pain 10/10; 12:26 BP 165 / 114; Pulse 89; Resp 18; Pulse Ox 96% on R/A; hdez 14:56 BP 149 / 94; Pulse 88; Resp 18; Pulse Ox 99% on R/A; hdez 11:05 Body Mass Index 27.26 (86.18 kg, 177.80 cm) 7 ED Course: 10:56 Patient arrived in ED. jj6 10:58 Paulino Daly PA is PHCP. [facility] 10:58 Walter Martinez MD is Attending Physician. m 11:07 Triage completed. jl7 11:07 Arm band placed on right wrist. jl7 11:15 Liver (Hepatic) Function Sent. hdez 11:15 Basic Metabolic Panel Sent. hdez 11:15 COVID-19/FLU A+B (Document "Date of Onset" if Symptomatic) Sent. hdez 11:15 Basic Metabolic Panel Sent. hdez 11:15 LFT's Sent. hdez 11:42 XRAY Chest (1 view) In Process Unspecified. EDMS 12:16 US Abdomen Limited In Process Unspecified. EDMS 12:27 Patient has correct armband on for positive identification. Bed in low position. hdez sterilizer operator on. Pulse ox on. 12:27 No provider procedures requiring assistance completed. Inserted saline lock: 20 gauge hdez in left antecubital area, using aseptic technique. Patient maintains SpO2 saturation greater than 95% on room air. 13:07 CT Chest For PE Angio In Process Unspecified. EDMS 13:24 CT Abd/Pelvis - IV Contrast Only In Process Unspecified. EDMS 15:04 Lavon Mcintosh MD is Referral Physician. jmm 15:19 IV discontinued, intact, Pressure dressing applied. hdez Administered Medications: 12:06 Drug: Zofran (Ondansetron) 4 mg Route: IVP; Site: left antecubital; hdez 12:07 Follow up: Response: No adverse reaction hdez 12:06 Drug: morphine 4 mg Route: IVP; Site: left antecubital; hdez 12:06 Follow up: Response: No adverse reaction hdez 12:53 Drug: Pepcid (famotidine) 20 mg Route: IVP; Site: left antecubital; hdez 12:54 Follow up: Response: No adverse reaction hdez 12:53 Drug: diphenhydrAMINE 25 mg Route: IVP; Site: left antecubital; hdez 12:54 Follow up: Response: No adverse reaction hdez 12:54 Drug: Decadron - Dexamethasone 10 mg Route: IVP; Site: left antecubital; hdez 12:54 Follow up: Response: No adverse reaction hdez Outcome: 15:05 Discharge ordered by MD. melendrez 15:19 Discharged to home with family. hdez 15:19 Condition: good 15:19 Discharge instructions given to patient, family, Prescriptions given X 3. 15:19 Patient left the ED. hdez Signatures: Dispatcher [employer] EDMS Paulino Daly PA PA jmm Leal, Jahala, RN RN Vannessa [id number] Amber Nelson RN RN hdez
[2021-09-30 16:13] VITALS: BP 149/94; TEMP 98; O2SAT 99
== END 2021-09-30 15:19 | disposition home or self-care (01) ==
LOC: ER 10:54
DX: K20.90 Esophagitis, unspecified without bleeding (principal); I10 Essential (primary) hypertension; F17.210 Nicotine dependence, cigarettes, uncomplicated; Z20.822 Contact with and (suspected) exposure to COVID-19; Z91.048 Other nonmedicinal substance allergy status
CPT/HCPCS: 0240U; 36415; 71045; 71275; 74177; 76705; 80048; 80076; 83690; 83735; 83880; 84484; 85025; 85610; 93005; 96374; 96375; 99285; J1100; J1200; J2405; Q9967

== ENCOUNTER 2023-01-15 14:02 | Emergency (ER) | payer OTHER ==
--- OUTSIDE RECORDS SUMMARY | 2023-01-15 14:06 | XMS REPORT | Continuity of Care Document ---
:1955 Author Organization [facility] t Address [address] [facility]. [address] [place] [id number] Care Team Providers Name Role Phone FOUND, PCP NOT Primary Care Physician Unavailable LORENZO FLOWER Attending Clinician Unavailable Problems This patient has no known problems. Allergies, Adverse Reactions, Alerts Allergy Allergy Status Severity Reaction(s) Onset Inactive Treating Comm ents Source Name Type Date Date Clinician NO Allergy Active Mild CHRISTU KNOWN to 05-09 S DRUG substanc 00:00: Health ALLERGY e 00 Social History Social Habit Start Date Stop Date Quantity Comments Source History of tobacco [facility] use Sex Assigned At [birth year] Male [facility] 00:00:00 00:00:00 Smoking Status Start Date Stop Date Source Smokes tobacco daily (finding) 2021-05-16 22:03:00 [facility] Medications Ordered Filled Start Stop Current Ordering Indication Dosage Frequency Signature Comments Components Source Medication Medication Date Date Medication? Clinician (SIG) Name Name Ketorolac 2019-0 2020- No 10mg Every 8 CHRI LALIT Tromethamin - 05-26 Hours S e (Toradol) 12:36: 00:00 Healt h 10 Mg TAB 00 :00 Ciprofloxac 2019-0 2020- No 500mg Every 12 CHRISTU in (Cipro) 5- 05-29 Hours S 500 Mg TAB 12:33: 00:00 Health 00 :00 Ondansetron 2020-0 No 4mg Every 8 CHR ISTU Hcl (Zofran 5-21 Hours as S Odt) 4 Mg 12:04: needed for He alth TAB.RAPDIS 00 Nausea / Vomiting Acetaminoph 2020-0 2020- No 1 Every 6 CH RISTU en/Codeine 5- 06-21 Hours as S Phosphate 12:04: 00:00 needed for H ealth (Tylenol 00 :00 Pain #3) 1 Tab TAB Meclizine No 25mg Three CHRISTU Hcl 8- Times A S (Antivert) 21:32: Day Health [...] Amlodipine No 5mg Every ANGUS U Besylate 17 Morning S (Norvasc) 20:09: Health 2.5 Mg TAB 00 Amoxicillin No 500mg Three CHRI LALIT (Amoxil) 5-06 Times A S 500 Mg CAP 18:50: Day Health 00 Acetaminoph 2008-08 No 1 Every 4 - C HRISTU en/Hydrocod 0-13 6 Hours S one Bitart 13:37: Health (Vicodin 00 5-500) 1 Tab TAB Ciprofloxac 2008-08 No [drp] Three CHRI ALLIT in Hcl 0-13 Times A S (Ciloxin [...] Source BP Diastolic 2021-05-17 00:05:00 87 mm[Hg] [facility] BP Systolic 2021-05-17 00:05:00 135 mm[Hg] [facility] Respiratory rate 2021-05-16 21:24:00 20 /[facility] Body Temperature 2021-05-16 21:24:00 98.5 [degF] [facility] BP Diastolic 2021-05-16 21:24:00 92 mm[Hg] [employer] BP Systolic 2021-05-16 21:24:00 125 mm[Hg] [facility] Heart Rate 2021-05-16 21:24:00 81 /min [employer] BP Diastolic 2021-05-16 21:10:00 92 mm[Hg] [employer] BP Systolic 2021-05-16 21:10:00 125 mm[Hg] [facility] Heart Rate 2021-05-16 21:10:00 81 /min [facility] Respiratory rate 2021-05-16 21:10:00 20 /min [facility] Body Temperature 2021-05-16 21:10:00 98.5 [degF] [facility] Health Procedures Procedure Date / Time Performed Performing Clinician Yang e Computed tomography of 2021-05-16 00:00:00 [facility] lungs with intravenous contrast Computed tomography of 2021-05-16 00:00:00 [facility] abdomen and pelvis with contrast Encounters Start End Encounter Admission Attending Care Care Encounter Source Date/Time Date/Time Type Type Clinicians Facility Department ID 2020-01-07 Inpatient BIANKA CARLTON [id number] CHRISTU 10:37:00 11 S Health 2020-01-06 Inpatient BIANKA CARLTON [id number] [facility] 10:27:00 65 S Health 2021-05-16 2021-05-17 Departed ER IP, LORENZO CARLTON [id number] [facility]STU 21:47:00 00:05:00 Emergency 45 S Room Health Results Test Description Test Time Test Comments [...] = 786-4) [facility] erythrocyte distribution width [id number] 21:40:00 Test Item Value Reference Range Interpretation Comments Red Cell Distribution Width (test code 13.5 10.7-14.5 = 788-0) [facility] blood platelet count (count/volume)2021-05-16 21:40:00 Test Item Value Reference Range Interpretation Comments Platelet Count (test code = 777-3) 234 150-450 [facility] blood platelet mean volume [id number] 21:40:00 Test Item Value Reference Range Interpretation Comments Mean Platelet Volume (test code = 10.6 5.7-10.7 87274-1) [facility] blood neutrophil count as percentage of total [id number] 21:40:00 Test Item Value Reference Range Interpretation Comments Neutrophils (%) (Auto) (test code = 62 47-75 770-8) [facility]Autom[facility] blood immature granulocyte count as percentage of total tmqbkzixrl5859-62-77 21:40:00 Test Item Value Reference Range Interpretation Comments Immature Granulocyte % (Auto) (test 0 0-0 code = 98571-4) [facility]Automated blood lymphocyte count as percentage of total jespnujgih5313-63-88 21:40:00 Test Item Value Reference Range Interpretation Comments Lymphocytes (%) (Auto) (test code = 28 25-44 736-9) [facility]ated blood monocyte count as percentage of total leukocytes 2021-05-16 21:40:00 Test Item Value Reference Range Interpretation Comments Monocytes (%) (Auto) (test code = 7 3-10 5905-5) [facility]Automated blood eosinophil count as percentage of total ulgkptvvax9749-17-48 21:40:00 Test Item Value Reference Range Interpretation Comments Eosinophils (%) (Auto) (test code = 3 0-7 713-8) [facility] HealthAutomated blood basophil count as percentage of total leukocytes 2021-05-16 21:40:00 Test Item Value Reference Range Interpretation Comments Basophils (%) (Auto) (test code = 1 0-1 706-2) [facility] HealthAutomated blood nucleated erythrocyte count as percentage of total [id number] 21:40:00 Test Item Value Reference Range Interpretation Comments Nucleated Red Blood Cells % (test code 0.0 0-0.2 = 26340-5) [facility] HealthAutomated blood neutrophil count (number/volume)2021-05-16 21:40:00 Test Item Value Reference Range Interpretation Comments Neutrophils # (Auto) (test code = 5.6 1.3-6.7 751-8) [facility] HealthAutomated blood immature granulocyte count as percentage of total nldhycrpse1232-34-40 21:40:00 Test Item Value Reference Range Interpretation Comments Immature Granulocyte # (Auto) (test 0.0 0.0-0.0 code = 59849-3) [facility] HealthAutomated blood lymphocyte count (number/volume)2021-05-16 21:40:00 Test Item Value Reference Range Interpretation Comments Lymphocytes # (Auto) (test code = 2.5 1.4-4.1 731-0) [facility] HealthBlood monocytes automated count (number/volume)2021-05-16 21:40:00 Test Item Value Reference Range Interpretation Comments Monocytes # (Auto) (test code = 742-7) 0.6 0-1.3 [facility] HealthAutomated blood eosinophil [id number] 21:40:00 Test Item Value Reference Range Interpretation [...] 0.00 0-0.01 = 771-6) [facility] HealthService comment [id number] 21:40:00 Test Item Value Reference Range Interpretation Comments Manual Differential (test code = Not Ind 8265-1) [facility] HealthProthrombin [id number] 21:40:00 Test Item Value Reference Range Interpretation Comments Prothrombin Time (test code = 5902-2) 11.9 9.4-12.5 [facility] HealthINR [id number] 21:40:00 Test Item Value Reference Range Interpretation Comments Prothromb Time International Ratio 1.1 0.8-1.2 (test code = 6301-6) [facility] HealthaPTT [id number] 21:40:00 Test Item Value Reference Range Interpretation Comments Activated Partial Thromboplast Time 32.7 25.1-36.5 (test code = 89262-1) [facility] HealthSodium [id number] 21:40:00 Test Item Value Reference Range Interpretation [...] Comments Carbon Dioxide Level (test code = 2028-04) [facility] HealthSerum or plasma anion gap determination (moles/volume)2021-05-16 21:40:00 Test Item Value Reference Range Interpretation Comments Anion Gap (test code = 09084-5) 12 8-18 [facility] HealthSerum or plasma urea nitrogen measurement (mass/volume)2021-05-16 21:40:00 Test Item Value Reference Range Interpretation Comments Blood Urea Nitrogen (test code = 04-12 3094-0) [facility] HealthSerum or plasma creatinine measurement (mass/volume)2021-05-16 21:40:00 Test Item Value Reference Range Interpretation Comments Creatinine (test code = 2160-0) 0.9 0.7-1.3 [facility] HealthGFR/BSA.pred SerPl [id number] 21:40:00 Test Item Value Reference Range Interpretation Comments Estimat Glomerular Filtration Rate 90 60-110 (test code = 88747-6) [facility] HealthSerum or plasma glucose measurement (mass/volume)2021-05-16 21:40:00 Test Item Value Reference Range Interpretation Comments Glucose Level (test code = 2345-7) 92 60-100 [facility] HealthSerum or plasma calcium measurement (mass/volume)2021-05-16 21:40:00 Test Item Value Reference Range Interpretation Comments Calcium Level (test code = 43853-4) 9.7 8.8-10.0 [facility] HealthSerum or plasma total bilirubin measurement (mass/volume) 2021-05-16 21:40:00 Test Item Value Reference Range Interpretation Comments Total Bilirubin (test code = 1975-2) 0.9 0.2-1.2 [facility] HealthSerum or plasma aspartate aminotransferase measurement (enzymatic activity/volume)2021-05-16 21:40:00 Test Item Value Reference Range Interpretation Comments Aspartate Amino Transf (AST/SGOT) (test 21 code = 1920-8) [facility] HealthSerum or plasma [...] Phosphatase (test code = 57 40-150 6768-6) [facility] HealthCT ABDOMEN/PELVIS [id number] 06:18:[address] [id number] IMAGING REPORTPat ient Name: DIGNA PARHAM FDate of Service: 53-94-0631Wlp: 64 Sex: M Order #: [id number] Room: ERSDOB: 1955 X-Ray Number: [id number] Record Number: [id number] Hospital Number: [id number] Physician: AVE BROWNOrdering Physician: AVE BROWNPROCEDURE: CT ABDOMEN/PELVIS WI THOUTINDICATIONS: Dx: Flank pain - leftPt sts: Left flank pain x2 days and worsetonight.Hx: HTN, kidney stonesPSV: SANEXAM: CT OF ABDOMEN/PELVIS WITHOUT CONTRAST:COMPARISON:NoneTECHNIQUE: Enteric contrast was not administered prior to exam.Contiguous axial images from lung bases through ischial tuberosities, withsagittal and coronal reformatted images.FINDINGS:The lung bases are clear. No pleural effusion identified.The adrenals are unremarkable.A solitary small mid pole calyceal stone is present onthe left,approximately 3 mm diameter. No ureteral stone or hydronephrosis isvisualized current time.The kidneys are otherwise unremarkable.Gallbladder and bile ducts unremarkable.No abnormality of liver, spleen, or pancreas identified.Aorta and inferior vena cava unremarkable.No adenopathy or ascitesis identified.Stomach and small bowel structures are unremarkable.No appendiceal abnormality is appreciated.No significant large bowel pathology is appreciated.Pelvic soft tissue structures are normal appearing. No stone isidentified within the urinary bladder.No significant bone lesion is identified.IMPRESSION:Small nonobstructing left renal stone. No ureteral stone orhydronephrosis currently visualized.This document has been electronically signed by: Barbara Salas 05/15/2019 06:18:17Legally authenticated by FRED HESTER 2019-05-15 05:27:00URINALYSIS 2019-05-15 05:49:00 Test Item Value Reference Range Interpretation [...] 1.000-1.025 UAMICRO (test code = UAMICRO) NO [id number] 05:40:00 Test Item Value Reference Range Interpretation Comments LIPASE (test code = LIPA) 42 U/L 23-300 LIVER [id number] 05:40:00 Test Item Value Reference Range Interpretation [...] (test code = ALT) 16 U/L 13-69 [id number] 05:20:00 Test Item Value Reference Range Interpretation [...] 4.4 K/UL 1.2-7.2 = NEUT) ISTAT CHEM [id number] 05:15:00 Test Item Value Reference Range Interpretation [...] 15.6 G/DL 12.0-18.0 Notifi ed Nurse/MD of ISTATHGB) results outside of Reference Range s ISTANGAP (test code = 19 MMOL/L Notifi ed Nurse/MD of ISTANGAP) results outside of Reference Range s
[2023-01-15 15:26] LABS: Absolute Lymphocytes (CBC) 1.7 K/uL (0.7-4.9); Hematocrit 44.9 % (39.6-49.0); MCV 87.8 fL (80-100); MPV 8.7 fL (7.6-11.3); RBC Red Blood Cell Count 5.11 M/uL (4.33-5.43)
[2023-01-15 15:34] LABS: Magnesium 2.2 mg/dL (1.6-2.4); Potassium 3.8 mEq/L (3.5-5.1); Troponin High Sensitivity 15.7 pg/mL (<58.9)
[2023-01-15 15:46] LABS: SARS-CoV-2 Antigen Rapid Res Negative (Negative)
--- NOTE | 2023-01-15 15:57 | RAD REPORT ---
EXAM DESCRIPTION: RADChest Single View01/15/2023 3:40 pm CLINICAL HISTORY: DYSPNEA COMPARISON: Chest Single View dated 09/30/2021 TECHNIQUE: Portable AP view of the chest. FINDINGS: The lungs are clear. No pneumothorax or effusion. The cardiomediastinal contours are unre markable. IMPRESSION: No acute cardiopulmonary process.
--- NOTE | 2023-01-15 17:19 | RAD REPORT ---
EXAM DESCRIPTION: CT - Chest For Pe Angio - 01/15/2023 4:42 pm CLINICAL HISTORY: CHEST PAIN COMPARISON: Chest For Pe Angio dated 09/30/2021 TECHNIQUE: Thin axial CT images of the chest were obtained following administration of 80 mL Isovue 370 IV contrast. Multiplanar reconstructions, and maximum intensity projection reconstructions were g enerated and reviewed. Exam utilizes a protocol for optimal evaluation of pulmonary arterial tree. All CT scans are performed using dose optimization technique as appropriate and may include automated exposure control or mA/KV adjustment according to patient size. FINDINGS: Pulmonary arteries are normal. No emboli or other suspicious finding. No acute findings of the heart or aorta. 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 No mass or infiltrate in the lung parenchyma. No pleural thickening or pleural effusion. No pneumotho rax. No abnormal mediastinal or hilar masses or lymphadenopathy seen. No chest wall mass or abnormal axill iary lymphadenopathy. Curvilinear hyperdensity in the left liver lobe anteriorly is stable, may relate to chronic calcific ation. IMPRESSION: No evidence of acute central pulmonary emboli. Stable ectasia of the ascending thoracic aorta.
[2023-01-15] MEDS ORDERED: IPRATROPIUM BROM 0.5MG/2.5ML ONE (17:52)
[2023-01-15] MEDS ORDERED: dexAMETHasone 10 MG/ML VIAL ONE (17:52)
[2023-01-15] MEDS ORDERED: ALBUTEROL 2.5 MG/3 ML NEB SOL ONE (17:52)
--- NOTE | 2023-01-15 18:15 | ER ---
Nurse's Notes [facility] Name: Rich Mota Jr Age: 67 yrs Sex: Male : 1955 Arrival Date: 01/15/2023 Time: 14:02 Bed 9 Private MD: Aaron Vital E Diagnosis: Acute upper respiratory infection, unspecified Presentation: 01/15 14:22 Chief complaint: Patient states: "The past few nights I've been waking up out of mb9 breath, coughing, and feel like I can't catch my breathe. My muscle are aching and I feel dizzy.". Coronavirus screen: Vaccine status: Patient reports being unvaccinated. Ebola Screen: No symptoms or risks identified at this time. Initial Sepsis Screen: Does the patient meet any 2 criteria? No. Patient's initial sepsis screen is negative. Does the patient have a suspected source of infection? No. Patient's initial sepsis screen is negative. Risk Assessment: Do you want to hurt yourself or someone else? Patient reports no desire to harm self or others. Onset of symptoms was January 15, 2023. 14:22 Method Of Arrival: Ambulatory mb9 14:22 Acuity: JULIA 3 mb9 Triage Assessment: 14:24 General: Appears in no apparent distress. Behavior is calm, cooperative. Pain: Denies mb9 pain. Neuro: French Agitation-Sedation Scale (RASS): 0 - Alert and Calm Level of Consciousness is awake, alert, obeys commands, Oriented to person, place, time, situation, Appropriate for age. Cardiovascular: Patient's skin is warm and dry. Respiratory: Reports shortness of breath cough that is. Respiratory: Airway is patent Respiratory effort is even, unlabored, Respiratory pattern is regular, symmetrical. GI: Patient currently denies diarrhea, nausea. Derm: Skin is pink, warm \\T\\ dry. Musculoskeletal: Range of motion: intact in all extremities. Historical: - Allergies: 14:23 Iodine; mb9 - Home Meds: 14:23 Lisinopril Oral [Active]; mb9 - PMHx: 14:23 Hypertensive disorder; prostate problems; hepatitis C; mb9 - PSHx: 14:23 right arm; mb9 - Immunization history:: Adult Immunizations up to date. - Social history:: Smoking status: Patient reports the use of cigarette tobacco products, smokes one pack cigarettes per day. Screenin:52 [facility] ED Fall Risk Assessment (Adult) History of falling in the last 3 months, iw including since admission. Abuse screen: Denies threats or abuse. Denies injuries from another. Nutritional screening: No deficits noted. Tuberculosis screening: No symptoms or risk factors identified. Assessment: 14:26 Reassessment: see triage assessment. mb9 14:56 General: Appears in no apparent distress. Behavior is calm, cooperative. Pain:. Neuro: mb9 Level of Consciousness is awake, alert, obeys commands, Oriented to person, place, time, situation, Moves all extremities. Full function Gait is steady. Cardiovascular: Rhythm is regular. Respiratory: Airway is patent Respiratory effort is even, unlabored, Respiratory pattern is regular, Breath sounds are clear bilaterally. GI: Abdomen is non-distended. Derm: Skin is intact, is healthy with good turgor. Musculoskeletal: Range of motion: intact in all extremities. Vital Signs: 14:22 BP 165 / 107; Pulse 90; Resp 19; Temp 99(O); Pulse Ox 97% on R/A; Weight 83.91 kg; mb9 Height 6 ft. 0 in. ; 17:20 BP 157 / 111 Supine; Pulse 83; iw 17:22 BP 161 / 117 Sitting; Pulse 84; iw 17:26 BP 161 / 115 Standing; Pulse 91; iw 14:22 Body Mass Index 25.09 (83.91 kg, 182.88 cm) mb9 ED Course: 14:08 Patient arrived in ED. im 14:08 Aaron Vital MD is Private Physician. im 14:08 Maria Elena Sorenson [facility]-C [facility]. kb 14:08 Jourdan Iverson MD is Attending Physician. kb 14:22 Arm band placed on. mb9 14:23 Triage completed. mb9 14:40 Maria Myers, RN is Primary Nurse. iw 14:52 Initial lab(s) drawn, by me, sent to lab. Inserted saline lock: 22 gauge in right iw antecubital area, using aseptic technique. Blood collected. 14:57 Patient has correct armband on for positive identification. mb9 15:42 XRAY Chest (1 view) In Process Unspecified. EDMS 16:44 CT Chest For PE Angio In Process Unspecified. EDMS 16:49 No provider procedures requiring assistance completed. mb9 Administered Medications: 17:52 Drug: Albuterol Inhalation 2.5 mg Route: Inhalation; iw 17:52 Drug: Ipratropium Inhalation Aerosol 0.5 mg Route: Inhalation; iw 17:52 Drug: Decadron - Dexamethasone IVP 10 mg Route: IVP; Site: right antecubital; iw 18:15 Follow up: Response: No adverse reaction iw Medication: 14:52 VIS not applicable for this client. iw Outcome: 18:14 Discharge ordered by kb 18:45 Patient left the ED. iw Signatures: Dispatcher [employer] EDMS Maria Elena Sorenson, THIAGOC GARCÍA-Maria Wade RN RN iw Sunita Amaya RN RN mb9 Bess Benjamin Corrections: (The following items were deleted from the chart) 17:27 17:22 BP 161 / 117; Pulse 84bpm; iw iw 17:27 17:26 BP 161 / 115; Pulse 91bpm; iw iw
--- NOTE | 2023-01-15 18:16 | EDPHYS ---
Physician Documentation [facility] Name: Rich Mota Jr Age: 67 yrs Sex: Male : 1955 Arrival Date: 01/15/2023 Time: 14:02 Bed 9 Private MD: Aaron Vital E ED Physician Jourdan Iverson HPI: 01/15 17:44 This 67 yrs old Male presents to ER via Ambulatory with complaints of Shortness Of kb Breath, Chest Congestion. 17:44 The patient has shortness of breath that woke him/her from sleep. Onset: The kb symptoms/episode began/occurred 3 day(s) ago. Duration: The symptoms are intermittent. The patient's shortness of breath is aggravated by supine position. Associated signs and symptoms: Pertinent positives: non-productive cough, bodyaches, congestion. Severity of symptoms: At their worst the symptoms were moderate in the emergency department the symptoms have improved. The patient has not experienced similar symptoms in the past. The patient has not recently seen a physician. Pt reports cough and congestion for 3 days. States he has been waking up in the middle of the night short of breath. Pt had chills one night. . Historical: - Allergies: 14:23 Iodine; mb9 - Home Meds: 14:23 Lisinopril Oral [Active]; mb9 - PMHx: 14:23 Hypertensive disorder; prostate problems; hepatitis C; mb9 - PSHx: 14:23 right arm; mb9 - Immunization history:: Adult Immunizations up to date. - Social history:: Smoking status: Patient reports the use of cigarette tobacco products, smokes one pack cigarettes per day. ROS: 16:56 Constitutional: Negative for fever, chills, and weight loss. kb 16:56 Respiratory: Positive for shortness of breath. 16:56 Neuro: Positive for dizziness. 16:56 All other systems are negative. Exam: 15:54 Constitutional: This is a well developed, well nourished patient who is awake, alert, kb and in no acute distress. Head/Face: Normocephalic, atraumatic. ENT: Moist Mucous membranes Cardiovascular: Regular rate and rhythm with a normal S1 and S2. No gallops, murmurs, or rubs. No pulse deficits. Respiratory: Respirations even and unlabored. No increased work of breathing. Talking in full sentences Abdomen/GI: Soft, non-tender. No distention Skin: Warm, dry with normal turgor. Normal color. MS/ Extremity: Pulses equal, no cyanosis. Neurovascular intact. Full, normal range of motion. Neuro: Awake and alert, GCS 15, oriented to person, place, time, and situation. Moves all extremities. Normal gait. 15:54 ECG was reviewed by the Attending Physician. Vital Signs: 14:22 BP 165 / 107; Pulse 90; Resp 19; Temp 99(O); Pulse Ox 97% on R/A; Weight 83.91 kg; mb9 Height 6 ft. 0 in. ; 17:20 BP 157 / 111 Supine; Pulse 83; iw 17:22 BP 161 / 117 Sitting; Pulse 84; iw 17:26 BP 161 / 115 Standing; Pulse 91; iw 14:22 Body Mass Index 25.09 (83.91 kg, 182.88 cm) mb9 MDM: 14:08 Patient medically screened. kb 16:56 Data reviewed: vital signs, nurses notes. kb 17:44 Differential diagnosis: Bronchitis pneumonia, pulmonary edema, URI. Counseling: I had a kb detailed discussion with the patient and/or guardian regarding: the historical points, exam findings, and any diagnostic results supporting the discharge/admit diagnosis, lab results, radiology results, the need for outpatient follow up, a family practitioner, to return to the emergency department if symptoms worsen or persist or if there are any questions or concerns that arise at home. 01/15 14:19 Order name: Basic Metabolic Panel; Complete Time: 15:42 kb 01/15 14:19 Order name: CBC with Diff; Complete Time: 15:42 kb 01/15 14:19 Order name: D-Dimer; Complete Time: 15:22 kb 01/15 14:19 Order name: Magnesium; Complete Time: 15:42 kb 01/15 14:19 Order name: NT PRO-BNP; Complete Time: 15:42 kb 01/15 14:19 Order name: Troponin HS; Complete Time: 15:42 kb 01/15 14:19 Order name: SARS-COV-2 Antigen Rapid; Complete Time: 15:51 kb 01/15 14:19 Order name: Flu; Complete Time: 16:18 kb 01/15 14:19 Order name: XRAY Chest (1 view); Complete Time: 16:12 kb 01/15 15:22 Order name: CT Chest For PE Angio; Complete Time: 17:21 kb 01/15 14:19 Order name: EKG; Complete Time: 14:19 kb 01/15 14:19 Order name: Cardiac monitoring; Complete Time: 17:29 kb 01/15 14:19 Order name: EKG - Nurse/Tech; Complete Time: 15:32 kb 01/15 14:19 Order name: IV Saline Lock; Complete Time: 14:52 kb 01/15 14:19 Order name: Labs collected and sent; Complete Time: 14:52 kb 01/15 14:19 Order name: O2 Per Protocol; Complete Time: 14:52 kb 01/15 14:19 Order name: O2 Sat Monitoring; Complete Time: 14:52 kb 01/15 16:51 Order name: Orthostatics; Complete Time: 17:25 kb EC:54 Rate is 84 beats/min. Rhythm is regular. QRS [place] is Normal. ME interval is normal at kb 160 msec. QRS interval is normal at 76 msec. QT interval is normal at 404 msec. Administered Medications: 17:52 Drug: Albuterol Inhalation 2.5 mg Route: Inhalation; iw 17:52 Drug: Ipratropium Inhalation Aerosol 0.5 mg Route: Inhalation; iw 17:52 Drug: Decadron - Dexamethasone IVP 10 mg Route: IVP; Site: right antecubital; iw 18:15 Follow up: Response: No adverse reaction iw Disposition Summary: 01/15/23 18:14 Discharge Ordered Location: Home kb Condition: Stable kb Diagnosis - Acute upper respiratory infection, unspecified kb Followup: kb - With: Private Physician - When: 2 - 3 days - Reason: Recheck today's complaints, Continuance of care, Re-evaluation by your physician Followup: kb - With: Emergency Department - When: As needed - Reason: Worsening of condition Discharge Instructions: - Discharge Summary Sheet kb - Upper Respiratory Infection, Adult, [id number] kb - Viral Respiratory Infection, [id number]-Rqvf kb Forms: - Medication Reconciliation Form kb - Thank You Letter kb - Antibiotic Education kb - Prescription Opioid Use kb Prescriptions: - albuterol sulfate 90 mcg/actuation Inhalation HFA Aerosol Inhaler - inhale 2 puff by INHALATION route every 4-6 hours As needed; 1 unit; Refills: kb 0, Product Selection Permitted - Prednisone 20 mg Oral Tablet - take 1 tablet by ORAL route once daily for 5 days; 5 tablet; Refills: 0, kb Product Selection Permitted Signatures: Dispatcher [employer] Maria Elena Becerra FNP-C FNP-Ckb Williams, Irene, RN RN iw Sunita Amaya RN RN mb9
[2023-01-15 19:10] VITALS: TEMP 99; O2SAT 97
[2023-01-15 19:13] VITALS: BP 161/115
--- NOTE | 2023-01-16 12:08 | EKG ---
Test Date: 2023-01-15 Test Time: 15:31:18 Radiologic Technologist: RHONDA MEASUREMENT RESULTS: Intervals: Rate: 84 NJ: 160 QRSD: 76 QT: 342 QTc: 404 Belen: P: 68 NJ: 160 QRS: 59 T: 70 INTERPRETIVE STATEMENTS: Normal sinus rhythm Nonspecific T wave abnormality Abnormal ECG Compared to ECG 09/30/2021 11:04:31 T-wave abnormality now present Sinus tachycardia no longer present Myocardial infarct finding no longer present Electronically Signed On 01-16-23 12:06:03 CDT by Aleksander Varghese
== END 2023-01-15 18:45 | disposition home or self-care (01) ==
LOC: ER 14:02
DX: J06.9 Acute upper respiratory infection, unspecified (principal); Z20.822 Contact with and (suspected) exposure to COVID-19; I10 Essential (primary) hypertension; F17.210 Nicotine dependence, cigarettes, uncomplicated; Z91.048 Other nonmedicinal substance allergy status
CPT/HCPCS: 93005; 85025; 80048; 36415; 83735; 85379; 84484; 83880; 87804 ×2; 71275; 71045; 96374; 99284; 87811; Q9967; J7613; J7644; J1100

== ENCOUNTER 2023-01-26 23:29 | Emergency (ER) | payer OTHER ==
--- OUTSIDE RECORDS SUMMARY | 2023-01-26 23:33 | XMS REPORT | Continuity of Care Document ---
:[address] [facility] t Address [address] [facility]. [address] [place] [id number] Care Team Providers Name Role Phone FOUND, [...] Date Quantity Comments Source History of tobacco [facility] use Sex Assigned At [birth year] Male [facility] 00:00:00 00:00:00 Smoking Status Start Date Stop Date Source Smokes tobacco daily (finding) 2021-05-16 22:03:00 [facility] Medications Ordered Filled Start Stop Current Ordering [...] Source BP Diastolic 2021-05-17 00:05:00 87 mm[Hg] [facility] BP Systolic 2021-05-17 00:05:00 135 [facility][Hg[facility] 2021-05-16 21:24:00 20 /[facility] Temperature 2021-05-16 21:24:00 98.5 [degF] [facility] Diastolic 2021-05-16 21:24:00 92 mm[Hg] [facility] BP Systolic 2021-05-16 21:24:00 125 mm[Hg] [facility] Heart Rate 2021-05-16 21:24:00 81 /min [employer] BP Diastolic 2021-05-16 21:10:00 92 mm[Hg] [employer] BP Systolic 2021-05-16 21:10:00 125 mm[Hg] [employer] Heart Rate 2021-05-16 21:10:00 81 /min [facility] rate 2021-05-16 21:10:00 20 /min [facility] Temperature 2021-05-16 21:10:00 98.5 [degF] [facility] Procedures Procedure Date / Time Performed Performing Clinician Yang e Computed tomography of 2021-05-16 00:00:00 [facility] lungs with intravenous contrast Computed tomography of 2021-05-16 00:00:00 [facility] abdomen and pelvis with contrast Encounters Start End Encounter Admission Attending Care Care Encounter Source Date/Time Date/Time Type Type Clinicians Facility Department ID 2020-01-07 Inpatient BIANKA CARLTON [id number] [facility] 10:37:00 [facility] 2020-01-06 Inpatient BIANKA CARLTON [id number] [facility] 10:27:00 [facility] 2021-05-16 2021-05-17 Departed ER IP, LORENZO CARLTON [id number] [facility] 21:47:00 00:05:00 Emergency 45 [address] Room [...] = 786-4) [facility] eryth[facility] width [id number] 21:40:00 Test Item Value Reference Range Interpretation Comments Red Cell Distribution Width (test code 13.5 10.7-14.5 = 788-0) [facility] platelet count (count/volume)2021-05-16 21:40:00 Test Item Value Reference Range Interpretation Comments Platelet Count (test code = 777-3) 234 150-450 [facility] blood platelet mean volume [id number] 21:40:00 Test Item Value Reference Range Interpretation Comments Mean Platelet Volume (test code = 10.6 5.7-10.7 86256-4) [facility] neutrophil count as percentage of total [id number] 21:40:00 Test Item Value Reference Range Interpretation Comments Neutrophils (%) (Auto) (test code = 62 47-75 770-8) [facility] blood immature granulocyte count as percentage of total [id number] 21:40:00 Test Item Value Reference Range Interpretation Comments Immature Granulocyte % (Auto) (test 0 0-0 code = 69395-7) [facility] blood lymphocyte count as percentage of total [id number] 21:40:00 Test Item Value Reference Range Interpretation Comments Lymphocytes (%) (Auto) (test code = 28 25-44 736-9) [facility] blood monocyte count as percentage of total leukocytes 2021-05-16 21:40:00 Test Item Value Reference Range Interpretation Comments Monocytes (%) (Auto) (test code = 7 3-10 5905-5) [facility] blood eosinophil count as percentage of total [id number] 21:40:00 Test Item Value Reference Range Interpretation Comments Eosinophils (%) (Auto) (test code = 3 0-7 713-8) [facility] blood basophil count as percentage of total leukocytes 2021-05-16 21:40:00 Test Item Value Reference Range Interpretation Comments Basophils (%) (Auto) (test code = 1 0-1 706-2) [facility]Automated blood nucleated erythrocyte count as percentage of total [id number] 21:40:00 Test Item Value Reference Range Interpretation Comments Nucleated Red Blood Cells % (test code 0.0 0-0.2 = 72807-7) [facility] blood neutrophil count (number/volume)2021-05-16 21:40:00 Test Item Value Reference Range Interpretation Comments Neutrophils # (Auto) (test code = 5.6 1.3-6.7 751-8) [facility]Automated blood immature granulocyte count as percentage of total [id number] 21:40:00 Test Item Value Reference Range Interpretation Comments Immature Granulocyte # (Auto) (test 0.0 0.0-0.0 code = 21774-7) [facility]Automated blood lymphocyte count (number/volume)2021-05-16 21:40:00 Test Item Value Reference Range Interpretation Comments Lymphocytes # (Auto) (test code = 2.5 1.4-4.1 731-0) [facility] HealthBlood monocytes automated count (number/volume)2021-05-16 21:40:00 Test Item Value Reference Range Interpretation Comments Monocytes # (Auto) (test code = 742-7) 0.6 0-1.3 [facility]Automated blood eosinophil [id number] 21:40:00 Test Item Value Reference Range Interpretation [...] 0.00 0-0.01 = 771-6) [facility]Service comment [id number] 21:40:00 Test Item Value Reference Range Interpretation Comments Manual Differential (test code = Not Ind 8265-1) [facility] HealthProthrombin [id number] 21:40:00 Test Item Value Reference Range Interpretation Comments Prothrombin Time (test code = 5902-2) 11.9 9.4-12.5 [facility] HealthINR [id number] 21:40:00 Test Item Value Reference Range Interpretation Comments Prothromb Time International Ratio 1.1 0.8-1.2 (test code = 6301-6) [facility] HealthaPTT [id number] 21:40:00 Test Item Value Reference Range Interpretation Comments Activated Partial Thromboplast Time 32.7 25.1-36.5 (test code = 86293-3) [facility] HealthSodium [id number] 21:40:00 Test Item Value Reference Range Interpretation [...] Interpretation Comments Anion Gap (test code = 70198-0) 12 8-18 [facility] HealthSerum or plasma urea nitrogen measurement (mass/volume)2021-05-16 21:40:00 Test Item Value Reference Range Interpretation Comments Blood Urea Nitrogen (test code = 04-12 3094-0) [facility] HealthSerum or plasma creatinine measurement (mass/volume)2021-05-16 21:40:00 Test Item Value Reference Range Interpretation Comments Creatinine (test code = 2160-0) 0.9 0.7-1.3 [facility] HealthGFR/BSA.pred SerPl [id number] 21:40:00 Test Item Value Reference Range Interpretation Comments Estimat Glomerular Filtration Rate 90 60-110 (test code = 81936-5) [facility] HealthSerum or plasma glucose measurement (mass/volume)2021-05-16 21:40:00 Test Item Value Reference Range Interpretation Comments Glucose Level (test code = 2345-7) 92 60-100 [facility] HealthSerum or plasma calcium measurement (mass/volume)2021-05-16 21:40:00 Test Item Value Reference Range Interpretation Comments Calcium Level (test code = 31736-7) 9.7 8.8-10.0 [facility] HealthSerum or plasma total [...] = 57 40-150 6768-6) [facility] HealthCT ABDOMEN/PELVIS [id number] 06:18:[address] [id number] IMAGING REPORTPat ient Name: DIGNA PARHAM FDate of Service: 15-64-1436Obg: 64 Sex: M Order #: [id number] Room: ERSDOB: 1955 X-Ray Number: [id number] Record Number: [id number] Hospital Number: [id number] Physician: AVE BROWNOrdering Physician: AVE BROWNPROCEDURE: CT [...] 1.000-1.025 UAMICRO (test code = UAMICRO) NO [id number] 05:40:00 Test Item Value Reference Range Interpretation Comments LIPASE (test code = LIPA) 42 U/L 23-300 LIVER [id number] 05:40:00 Test Item Value Reference Range Interpretation [...] (test code = ALT) 16 U/L 13-69 [id number] 05:20:00 Test Item Value Reference Range Interpretation [...] 4.4 K/UL 1.2-7.2 = NEUT) ISTAT CHEM [id number] 05:15:00 Test Item Value Reference Range Interpretation [...]
[2023-01-27] MEDS ORDERED: NA CHLORIDE 0.9% 1,000 ML ONE (00:37)
[2023-01-27 00:48] LABS: Absolute Lymphocytes (CBC) 0.5 K/uL (0.7-4.9); Hematocrit 43.9 % (39.6-49.0); Lymphocytes % 6.6 % (15.3-44.8); MCV 87.6 fL (80-100); MPV 8.3 fL (7.6-11.3)
[2023-01-27 00:49] LABS: Protime INR 1.12
[2023-01-27 01:01] LABS: Bilirubin Total 0.8 mg/dL (0.2-1.0); Potassium 3.8 mEq/L (3.5-5.1); Protein, Total 7.4 g/dL (6.4-8.2)
[2023-01-27 01:09] LABS: SARS-CoV-2 Antigen Rapid Res Positive (Negative)
--- NOTE | 2023-01-27 01:16 | ER ---
Nurse's Notes [facility] Name: Rich Mota Jr Age: 67 yrs Sex: Male : 1955 Arrival Date: 01/26/2023 Time: 23:29 Bed 15 Private MD: Diagnosis: Pneumonia due to SARS-associated coronavirus Presentation: 01/26 23:32 Chief complaint: Patient states: subjective fever, yellow productive cough, body aches, pf1 chills,onset yesterday. 23:32 Coronavirus screen: Vaccine status: Patient reports being unvaccinated. Client denies pf1 travel out of the [place] in the last 14 days. Client presents with at least one sign or symptom that may indicate coronavirus-19. Standard/surgical mask placed on the client. Ebola Screen: Patient negative for fever greater than or equal to 101.5 degrees Fahrenheit, and additional compatible Ebola Virus Disease symptoms. Initial Sepsis Screen: Does the patient meet any 2 criteria? HR > 90 bpm. No. Patient's initial sepsis screen is negative. Does the patient have a suspected source of infection? No. Patient's initial sepsis screen is negative. Risk Assessment: Do you want to hurt yourself or someone else? Patient reports no desire to harm self or others. 23:32 Method Of Arrival: Ambulatory pf1 23:32 Acuity: JULIA 3 pf1 Historical: - Allergies: 01/27 01:14 Iodine; pf1 01:14 SHELLFISH; pf1 - PMHx: 01:14 Hypertensive disorder; Hepatitis C; prostate problems; pf1 - PSHx: 01:14 right arm; pf1 - Immunization history:: Adult Immunizations not up to date, Client reports having NOT received the Covid vaccine. Last tetanus immunization: > 10 years ago Flu vaccine is up to date. - Social history:: Smoking status: Patient reports the use of cigarette tobacco products, smokes one pack cigarettes per day. Patient/guardian denies using alcohol, street drugs. Screenin/11 23:35 [facility] ED Fall Risk Assessment (Adult) History of falling in the last 3 months, pf1 including since admission No falls in past 3 months (0 pts) Confusion or Disorientation No (0 pts) Intoxicated or Sedated No (0 pts) Impaired Gait No (0 pts) Mobility Assist Device Used No (0 pt) Altered Elimination No (0 pt) Score/Fall Risk Level 0 - 2 = Low Risk Oriented to surroundings, Maintained a safe environment, Educated pt \T\ family on fall prevention, incl call for assistance when getting out of bed, Assessed \T\ reinforced patient's understanding of fall precautions, Provided non-skid footwear, Hourly rounding (assess needs \T\ fall precautionary measures) done, Used ambulatory aids as needed (educated on \T\ assisted with), Used gait belt as appropriate. 23:35 Abuse screen: Denies threats or abuse. Nutritional screening: No deficits noted. pf1 Tuberculosis screening: No symptoms or risk factors identified. Assessment: 23:35 General: Appears in no apparent distress. comfortable, well groomed, well developed, pf1 Behavior is calm, cooperative, appropriate for age, quiet. 23:35 Pain: Complains of pain in generalized body aches with headache pain of 6 Pain pf1 currently is 6 out of 10 on a pain scale. Neuro: Level of Consciousness is awake, alert, obeys commands, Oriented to person, place, time, situation, Appropriate for age Reports headache in entire. Cardiovascular: No deficits noted. Capillary refill < 3 seconds Patient's skin is warm and dry. Respiratory: Reports cough that is productive, with subjective fever and chills Airway is patent Trachea midline Respiratory effort is even, unlabored, Respiratory pattern is regular, symmetrical, Breath sounds are clear bilaterally. GI: No deficits noted. No signs and/or symptoms were reported involving the gastrointestinal system. : No deficits noted. No signs and/or symptoms were reported regarding the genitourinary system. EENT: No deficits noted. No signs and/or symptoms were reported regarding the EENT system. Derm: No deficits noted. No signs and/or symptoms reported regarding the dermatologic system. Musculoskeletal: Reports pain in generalized body aches and headache. 01/27 00:35 Reassessment: Patient appears in no apparent distress at this time. Patient and/or pf1 family updated on plan of care and expected duration. Pain level reassessed. Patient is alert, oriented x 3, equal unlabored respirations, skin warm/dry/pink. Patient states symptoms have improved. 01:27 Reassessment: Patient appears in no apparent distress at this time. Patient and/or pf1 family updated on plan of care and expected duration. Pain level reassessed. Patient is alert, oriented x 3, equal unlabored respirations, skin warm/dry/pink. Patient states symptoms have improved. Vital Signs: 01/26 23:32 BP 133 / 78; Pulse 118; Resp 18; Temp 99.4; Pulse Ox 98% on R/A; Weight 83.91 kg; pf1 Height 5 ft. 10 in. ; Pain 6/10; 01/27 00:30 BP 118 / 84; Pulse 105; Resp 18; Pulse Ox 97% on R/A; pf1 01:00 BP 118 / 82; Pulse 103; Resp 18; Temp 98.9; Pulse Ox 97% on R/A; Pain 0/10; pf1 01/26 23:32 Body Mass Index 26.54 (83.91 kg, 177.8 cm) pf1 01/26 23:32 Pain Scale: Adult pf1 01:00 Pain Scale: Adult pf1 ED Course: 01/26 23:30 Patient arrived in ED. ja2 23:32 Patient has correct armband on for positive identification. Placed in gown. Bed in low pf1 position. Call light in reach. 23:32 Arm band placed on right wrist. pf1 23:36 Maria Elena Sorenson FNP-C is PHCP. kb 23:36 Jourdan Iverson MD is Attending Physician. kb 01/27 00:20 No provider procedures requiring assistance completed. Inserted saline lock: 20 gauge pf1 in right antecubital area, using aseptic technique. Blood collected. 00:34 Julieta George, YUNIOR is Primary Nurse. pf1 00:34 SARS RAPID Sent. pf1 00:34 Flu Sent. pf1 00:39 CBC with Diff Sent. pf1 00:39 CMP Sent. pf1 00:39 Protime (+inr) Sent. pf1 00:39 Ptt, Activated Sent. pf1 00:45 Blood Culture Adult (2) Sent. pf1 01:12 Chest Single View XRAY In Process Unspecified. EDMS 01:14 Triage completed. pf1 01:50 IV discontinued, intact, bleeding controlled, No redness/swelling at site. Pressure pf1 dressing applied. Administered Medications: 00:30 Drug: NS 0.9% IV 1000 ml Route: IV; Rate: 1000 ml; Site: right antecubital; pf1 01:27 Follow up: Response: No adverse reaction; Marked relief of symptoms; IV Status: pf1 Completed infusion; IV Intake: 1000ml Medication: 01:51 VIS not applicable for this client. pf1 Intake: 01:27 IV: 1000ml; Total: 1000ml. pf1 Outcome: 01:15 Discharge ordered by . bs3 01:50 Discharged to home ambulatory. pf1 01:50 Condition: improved 01:50 Discharge instructions given to patient, Instructed on discharge instructions, follow up and referral plans. Demonstrated understanding of instructions, follow-up care, medications, Prescriptions given X 1. 01:51 Patient left the ED. pf1 Signatures: Dispatcher [employer] EDMS Maria Elena Sorenson, BARBED WIRE MACHINE OPERATOR-C BARBED WIRE MACHINE OPERATOR-Ckb Raine Kelly Brandon, MD MD bs3 Julieta George RN RN pf1 Corrections: (The following items were deleted from the chart) 00:47 00:46 Patient has correct armband on for positive identification. Placed in gown. Bed pf1 in low position. Call light in reach. pf1
--- NOTE | 2023-01-27 01:16 | EDPHYS ---
Physician Documentation [facility] Name: Rich Mota Jr Age: 67 yrs Sex: Male : 1955 Arrival Date: 01/26/2023 Time: 23:29 Bed 15 Private MD: ED Physician Jourdan Iverson HPI: 01/27 00:49 This 67 yrs old Male presents to ER via Unassigned with complaints of Fever, Body Aches.kb 00:49 The patient or guardian reports cough, that is intermittent, described as mild, flu kb symptoms, low-grade fever, myalgias. Onset: The symptoms/episode began/occurred yesterday. Severity of symptoms: At their worst the symptoms were moderate, in the emergency department the symptoms are unchanged. Modifying factors: The symptoms are alleviated by nothing, the symptoms are aggravated by nothing. Associated signs and symptoms: Pertinent positives: chest pain, with cough, fever, rhinorrhea. The patient has not experienced similar symptoms in the past. The patient has not recently seen a physician. Pt reports cough, congestion, fever, chills and bodyaches since yesterday. Pt was seen for similar symptoms on 01/15 and given steroids. States his symptoms resolved and he was feeling much better, but symptoms returned yesterday.. Historical: - Allergies: 01:14 Iodine; pf1 01:14 SHELLFISH; pf1 - PMHx: 01:14 Hypertensive disorder; Hepatitis C; prostate problems; pf1 - PSHx: 01:14 right arm; pf1 - Immunization history:: Adult Immunizations not up to date, Client reports having NOT received the Covid vaccine. Last tetanus immunization: > 10 years ago Flu vaccine is up to date. - Social history:: Smoking status: Patient reports the use of cigarette tobacco products, smokes one pack cigarettes per day. Patient/guardian denies using alcohol, street drugs. ROS: 00:48 Abdomen/GI: Negative for abdominal pain, nausea, vomiting, diarrhea, and constipation. kb 00:48 Constitutional: Positive for body aches, chills, fatigue, fever, malaise. 00:48 ENT: Positive for sinus congestion. 00:48 Respiratory: Positive for cough. 00:48 All other systems are negative. Exam: 00:48 Constitutional: This is a well developed, well nourished patient who is awake, alert, kb and in no acute distress. Head/Face: Normocephalic, atraumatic. ENT: Moist Mucous membranes Cardiovascular: Regular rate and rhythm with a normal S1 and S2. No gallops, murmurs, or rubs. No pulse deficits. Respiratory: Respirations even and unlabored. No increased work of breathing. Talking in full sentences Abdomen/GI: Soft, non-tender. No distention Skin: Warm, dry with normal turgor. Normal color. MS/ Extremity: Pulses equal, no cyanosis. Neurovascular intact. Full, normal range of motion. Neuro: Awake and alert, GCS 15, oriented to person, place, time, and situation. Moves all extremities. Normal gait. Vital Signs: 01/26 23:32 BP 133 / 78; Pulse 118; Resp 18; Temp 99.4; Pulse Ox 98% on R/A; Weight 83.91 kg; pf1 Height 5 ft. 10 in. ; Pain 6/10; 01/27 00:30 BP 118 / 84; Pulse 105; Resp 18; Pulse Ox 97% on R/A; pf1 01:00 BP 118 / 82; Pulse 103; Resp 18; Temp 98.9; Pulse Ox 97% on R/A; Pain 0/10; pf1 01/26 23:32 Body Mass Index 26.54 (83.91 kg, 177.8 cm) pf1 01/26 23:32 Pain Scale: Adult pf1 01:00 Pain Scale: Adult pf1 MDM: 01/26 23:36 Patient medically screened. 01/27 00:49 Differential Diagnosis: Bronchitis Influenza Upper Respiratory Infection Pneumonia. kb Data reviewed: vital signs, nurses notes. Transition of care: After a detail discussion of the patient's case, care is transferred to Jourdan Iverson MD. 01:14 ED course: Patient found to be coronavirus positive he is not vaccinated we had a bs3 shared decision-making conversation regarding possible treatments and he agreed to try Paxlovid he is not hypoxic therefore he would not benefit from dexamethasone is advised to return with any worsening or concerning symptoms. 01/26 23:45 Order name: Blood Culture Adult (2) kb 01/26 23:45 Order name: CBC with Diff; Complete Time: 01:10 kb 01/26 23:45 Order name: CMP; Complete Time: 01:10 kb 01/26 23:45 Order name: Lactate w/ 2H reflex if indic.; Complete Time: 01:10 kb 01/26 23:45 Order name: Protime (+inr); Complete Time: 00:51 kb 01/26 23:45 Order name: Ptt, Activated; Complete Time: 00:51 kb 01/26 23:45 Order name: Flu; Complete Time: 15:49 kb 01/26 23:45 Order name: SARS RAPID; Complete Time: 01:10 kb 01/27 00:49 Order name: Glucose, Ancillary Testing; Complete Time: 00:51 EDMS 01/26 23:45 Order name: Chest Single View XRAY kb 01/26 23:45 Order name: EKG; Complete Time: 23:46 kb 01/26 23:45 Order name: Accucheck; Complete Time: 00:37 kb 01/26 23:45 Order name: Cardiac monitoring; Complete Time: 00:37 kb 01/26 23:45 Order name: EKG - Nurse/Tech; Complete Time: 00:38 kb 01/26 23:45 Order name: IV Saline Lock - Large Bore; Complete Time: 00:37 kb 01/26 23:45 Order name: Labs collected and sent; Complete Time: 00:37 kb 01/26 23:45 Order name: O2 Per Protocol; Complete Time: 00:37 kb 01/26 23:45 Order name: O2 Sat Monitoring; Complete Time: 00:37 kb 01/26 23:45 Order name: Vital Signs; Complete Time: 00:39 kb Administered Medications: 00:30 Drug: NS 0.9% IV 1000 ml Route: IV; Rate: 1000 ml; Site: right antecubital; pf1 01:27 Follow up: Response: No adverse reaction; Marked relief of symptoms; IV Status: pf1 Completed infusion; IV Intake: 1000ml Disposition: 01:14 I reviewed the patient's care provided by Advanced Practice Provider \T\ agree w/ the bs3 diagnosis \T\ care plan. I personally saw the pt \T\ performed a substantive portion of the visit, incldng all aspects of the (History/Exam/Medical Decision Making). Disposition Summary: 01/27/23 01:15 Discharge Ordered Location: Home bs3 Problem: new bs3 Symptoms: have improved bs3 Condition: Fair bs3 Diagnosis - Pneumonia due to SARS-associated coronavirus bs3 Followup: bs3 - With: Private Physician - When: 5 - 6 days - Reason: Re-evaluation by your physician Discharge Instructions: - Discharge Summary Sheet bs3 - Upper Respiratory Infection, Adult, [id number] bs3 Forms: - Medication Reconciliation Form bs3 - Thank You Letter bs3 - Antibiotic Education bs3 - Prescription Opioid Use bs3 Prescriptions: - Paxlovid 300 mg (150 mg x 2)-100 mg Oral Tablet, Dose Pack - take 1 dose pack by ORAL route per package directions; 1 blisters; Refills: 0, bs3 Product Selection Permitted Signatures: Dispatcher [employer] EDMS Maria Elena Sorenson, LAWN CARE TECHNICIAN-C GARCÍA-Jourdan Eastman MD MD bs3 Julieta George RN RN pf1 Corrections: (The following items were deleted from the chart) 00:51 00:49 Pt reports cough, congestion, fever, chills and bodyaches since yesterday. kb kb
[2023-01-27 01:57] VITALS: O2SAT 97
[2023-01-27 01:58] VITALS: BP 118/82; TEMP 98.9
--- NOTE | 2023-01-27 12:02 | EKG ---
Test Date: 2023-01-27 Test Time: 00:37:39 Publications Production Supervisor: RHONDA MEASUREMENT RESULTS: Intervals: Rate: 112 MA: 144 QRSD: 74 QT: 332 QTc: 453 [place]: P: 74 MA: 144 QRS: 62 T: 69 INTERPRETIVE STATEMENTS: Sinus tachycardia with occasional premature ventricular complexes Nonspecific T wave abnormality Abnormal ECG Compared to ECG 01/15/2023 15:31:18 Ventricular premature complex(es) now present Sinus rhythm no longer present T-wave abnormality still present Electronically Signed On 01-27-23 12:00:19 CDT by Aleksander Varghese
--- NOTE | 2023-01-27 13:52 | RAD REPORT ---
EXAM DESCRIPTION: Chest Single View RadLex: XR CHEST 1 VIEW CLINICAL HISTORY: 67 years Male, Congestion;Cough COMPARISON: Reports from prior radiographs. No images available at time of dictation for direct comp arison. FINDINGS: Single or double AP upright view of the chest. Trachea is midline. Normal size of the card iac silhouette. No pulmonary vascular congestion. No focal consolidation, pleural effusion, or pneumo thorax. No acute osseous abnormality. IMPRESSION: No acute radiographic abnormality. Electronically signed by: Key Flores MD 01/27/2023 1:18 AM CDT Due to temporary technical issues with the PACS/Fluency reporting system, reports are being signed by the in house radiologist without review as a courtesy to ensure prompt reporting. The interpreting r adiologist is fully responsible for the content of the report.
== END 2023-01-27 01:51 | disposition home or self-care (01) ==
LOC: ER 23:29
DX: U07.1 COVID-19 (principal); J12.82 Pneumonia due to coronavirus disease 2019; F17.210 Nicotine dependence, cigarettes, uncomplicated; I10 Essential (primary) hypertension; Z91.013 Allergy to seafood; Z91.048 Other nonmedicinal substance allergy status
CPT/HCPCS: 93005; 87040 ×2; 85025; 36415; 85610; 82947; 83605; 85730; 80053; 87804 ×2; 71045; 96360; 99284; 87811; J7030

== ENCOUNTER 2023-12-07 21:39 | Emergency (ER) | payer OTHER ==
[2023-12-07] MEDS ORDERED: FAMOTIDINE 20 MG/2 ML VIAL IV ONE (22:37)
[2023-12-07] MEDS ORDERED: ONDANSETRON 4 MG/2 ML VIAL ONE (22:37)
[2023-12-07] MEDS ORDERED: MORPHINE 4 MG/ML SYR ONE (22:37)
[2023-12-07] MEDS ORDERED: NA CHLORIDE 0.9% 1,000 ML ONE (22:37)
[2023-12-07] MEDS ORDERED: METOCLOPRAMIDE 10 MG/2mL INJ ONE (22:37)
[2023-12-07 22:42] LABS: Absolute Basophils 0.1 K/uL (0-0.5); Absolute Eosinophils 0.2 K/uL (0-0.5); Absolute Lymphocytes (CBC) 2.3 K/uL (0.7-4.9); Absolute Monocytes 0.6 K/uL (0.1-1.3); Basophils % 0.7 % (0-1.3); Eosinophils % 2.4 % (0-4.4); Hematocrit 54.8 % (39.6-49.0); Hemoglobin 17.1 g/dL (13.6-17.9); Lymphocytes % 32.1 % (15.3-44.8); MCH 23.7 pg (27.0-35.0); MCHC 31.3 g/dL (32.0-36.0); MCV 75.9 fL (80-100); MPV 8.7 fL (7.6-11.3); Neutrophils % 55.8 % (41.7-73.7); Nucleated Red Blood Cells % 0.1 % (0-0); Platelets 289 thou/uL (152-406); RBC Red Blood Cell Count 7.21 M/uL (4.33-5.43); Red Cell Distribution Width 22.1 % (12.1-15.2)
[2023-12-07 22:50] LABS: Specific Gravity 1.017 (1.005-1.030); Sqamous Epithelial None Seen /HPF (None Seen); Urine Bacteria None Seen /HPF (<20); Urine Bilirubin NEGATIVE (Negative); Urine Blood Negative (Negative); Urine Clarity Clear (Clear); Urine Color Yellow (Yellow); Urine Culture Reflex Order NOT NEEDED; Urine Glucose NEGATIVE (Negative); Urine Ketones NEGATIVE (Negative); Urine Microscopic Reflex YN ORDER UMIC; Urine Mucus Slight /HPF (None Seen); Urine Nitrite NEGATIVE (Negative); Urine Protein 1+ (Negative); Urine RBC <5 /HPF (None Seen); Urine Urobilinogen Normal (Normal); Urine WBC <5 /HPF (<5)
[2023-12-07 23:08] LABS: Albumin 3.5 g/dL (3.4-5.0); Albumin/Globulin Ratio 0.8 (1.1-1.8); Anion Gap 10.1 mEq/L (5.0-15.0); Bilirubin Total 1.5 mg/dL (0.2-1.0); C-Reactive Protein 39.4 mg/L (<3.00); Globulin 4.6 g/dL (2.3-3.5); Potassium 4.1 mEq/L (3.5-5.1); Protein, Total 8.1 g/dL (6.4-8.2)
[2023-12-08 01:20] LABS: Anisocytosis 2+; Blood Morphology Comment NOTED (NOT SEEN); Hypochromasia 3+; Microcytosis 2+; Platelet Estimate ADEQ; Target Cells 2+; White Blood Cell Scan OK (OK)
--- NOTE | 2023-12-08 02:10 | EDPHYS ---
Physician Documentation [facility] Name: Rich Mota Jr Age: 68 yrs Sex: Male : 1955 Arrival Date: 12/07/2023 Time: 21:39 Bed 15 Private MD: ED Physician Tom Rushing HPI: 12/06 21:45 This 68 yrs old Male presents to ER via Unassigned with complaints of sp4 Abdominal Pain, Pt states he was recently diagnosed with liver cancer. 21:45 . sp4 12/07 02:03 68-year-old male presents with complaint of right upper quadrant abdominal pain sp4 secondary to recent liver mass. Patient states pain feels like a pressure right upper quadrant and he reports that he was diagnosed with liver mass in July 2020. [facility]. Patient now follows with Dr. Young with hematology oncology at [facility]. Patient recently had MRI on Friday associated with PET scan as well. . Historical: - Allergies: 12/06 22:14 Iodine; vc1 22:14 SHELLFISH; vc1 - Home Meds: 22:14 lisinopril Oral [Active]; Flomax Oral [Active]; vc1 - PMHx: 22:14 Hepatitis C; Hypertensive disorder; prostate problems; Hepatocellular Carcinoma (2023); vc1 - PSHx: 22:14 right arm; vc1 - Immunization history:: Client reports having NOT received the Covid vaccine. Flu vaccine is up to date. - Infectious Disease History:: Denies. - Social history:: Smoking status: Patient reports the use of cigarette tobacco products, smokes one-half pack cigarettes per day. - Family history:: not pertinent. - Code Status:: Full code. ROS: 12/07 02:03 Constitutional: Negative for fever, chills, and weight loss, positive right upper sp4 quadrant abdominal pain All other systems are negative, Exam: 02:03 Constitutional: This is a well developed, well nourished patient who is awake, alert, sp4 and in no acute distress. Head/Face: Normocephalic, atraumatic. Eyes: Pupils equal round and reactive to light, extra-ocular motions intact. Lids and lashes normal. Conjunctiva and sclera are not injected. Cornea within normal limits. Periorbital areas with no swelling, redness, or edema. ENT: Nares patent. No nasal discharge, no septal abnormalities noted. Tympanic membranes are normal and external auditory canals are clear. Oropharynx with no redness, swelling, or masses, exudates, or evidence of obstruction, uvula midline. Mucous membranes moist. Neck: Trachea midline, no thyromegaly or masses palpated, and no cervical lymphadenopathy. Supple, full range of motion without nuchal rigidity, or vertebral point tenderness. Chest/axilla: Normal chest wall appearance and motion. Nontender with no deformity. No lesions are appreciated. Cardiovascular: Regular rate and rhythm with a normal S1 and S2. No gallops, murmurs, or rubs. Normal PMI, no JVD. No pulse deficits. Respiratory: Lungs have equal breath sounds bilaterally, clear to auscultation and percussion. No rales, rhonchi or wheezes noted. No increased work of breathing, no retractions or nasal flaring. Abdomen/GI: Soft, with normal bowel sounds. No distension or tympany. No guarding or rebound. No evidence of tenderness throughout. Back: No spinal tenderness. No costovertebral tenderness. Male : Normal genitalia with no discharge or lesions. Skin: Warm, dry with normal turgor. Normal color with no rashes, no lesions, and no evidence of cellulitis. MS/ Extremity: Pulses equal, no cyanosis. Neurovascular intact. Full, normal range of motion. Neuro: Awake and alert, GCS 15, oriented to person, place, time, and situation. Cranial nerves II-XII grossly intact. Motor strength 5/5 in all extremities. Sensory grossly intact. Psych: Awake, alert, with orientation to person, place and time. Behavior, mood, and affect are within normal limits Vital Signs: 12/06 22:11 BP 197 / 125; Pulse 96; Resp 16; Temp 97; Pulse Ox 96% ; Weight 68.49 kg; Height 5 ft. vc1 10 in. ; Pain 5/10; 23:03 BP 155 / 109; Pulse 87; Resp 16; pm6 12/07 00:11 BP 138 / 103; Pulse 88; Resp 21; Pulse Ox 93% on R/A; tm6 01:50 BP 155 / 110; Pulse 78; Pulse Ox 93% on 2 lpm NC; tm6 02:26 BP 143 / 99; Pulse 90; Resp 18; Temp 97.8(TE); Pulse Ox 96% on R/A; Pain 2/10; tm6 12/06 22:11 Body Mass Index 21.67 (68.49 kg, 177.8 cm) vc1 04 22:11 Pain Scale: Adult vc1 02:26 Pain Scale: Adult tm6 12/06 22:11 Took Lisinopril before coming in 1 MDM: 22:37 Patient medically screened. sp4 12/07 00:58 ED course: IMPRESSION: CT 1. Significantly enlarged liver with multiple heterogeneous sp4 masses occupying the right hepatic lobe. Trace perihepatic fluid is present. Findings are most suggestive of malignancy/metastatic disease. This was not definitively present on the prior examinations. Further evaluation is warranted. 2. Pulmonary nodules. Per Fleischner Society Guidelines, recommend a non-contrast Chest CT at 3-6 months, then another noncontrast Chest CT at 18-24 months. These guidelines do not apply to immunocompromised patients and patients with cancer. Follow up in patients with significant comorbidities as clinically warranted. For lung cancer screening, adhere to Lung-RADS guidelines. Reference: Radiology. 2017; 284(1):228-43. Electronically signed by: Ping Garay MD 12/08/2023 12:38 AM. 02:03 Differential Diagnosis altered mental status, sepsis, flu, Liver mass. Data reviewed: sp4 vital signs, nurses notes, lab test result(s), radiologic studies, CT scan. Consideration of Admission/Observation Escalation of care including admission/observation considered. ED course: CT has revealed significantly enlarged liver with heterogenous liver mass in the right hepatic lobe. Trace perihepatic fluid. This suggests metastatic malignant disease. No acute surgical emergencies by CT. Patient offered transfer to [place] or [facility]. Patient prefers to be released with pain medicine and he prefers to follow-up with Dr. Young at [facility] for cancer care. At this time stable for discharge home. 12/06 21:45 Order name: CBC with Diff; Complete Time: 01:54 sp4 12/06 21:45 Order name: CMP; Complete Time: 00:58 sp4 12/06 21:45 Order name: Lipase; Complete Time: 00:58 sp4 12/06 21:45 Order name: Urinalysis w/ reflexes; Complete Time: 00:58 sp4 12/06 22:48 Order name: CBC Smear Scan; Complete Time: 01:54 EDMS 12/06 22:50 Order name: C-Reactive Protein; Complete Time: 00:58 EDMS 12/06 22:31 Order name: CT Chest, Abdomen, Pelvis - W/Contrast sp4 12/06 21:45 Order name: IV Saline Lock; Complete Time: 22:27 sp4 12/06 21:45 Order name: Labs collected and sent; Complete Time: 22:27 sp4 Administered Medications: 12/06 22:52 Drug: morphine IVP or IV 8 mg IVP once over 4 mins Route: IVP; Infused Over: 4 mins; tm6 Site: right antecubital; 22:52 Drug: Famotidine IVP 20 mg IVP once; dilute with 10 mL 0.9% NaCl; give over 2 minutes tm6 Route: IVP; Site: right antecubital; 22:52 Drug: metoCLOPramide IVP 10 mg IVP once; over 1 to 2 minutes Route: IVP; Site: right tm6 antecubital; 22:53 Drug: Ondansetron IVP 4 mg IVP once; over 2 minutes Route: IVP; Site: right antecubital;tm6 22:53 Drug: NS 0.9% IV 1000 ml IV at 125 ml/hr continuous Route: IV; Rate: 125 ml/hr; Site: tm6 right antecubital; 12/07 02:28 Follow up: IV Status: Completed infusion; IV Intake: 750ml tm6 02:26 Drug: [place] PO 10 mg-325 mg 1 tabs PO once Route: PO; tm6 02:26 Drug: Promethazine PO 25 mg PO once Route: PO; tm6 Disposition Summary: 12/08/23 02:10 Discharge Ordered Notes: Location: Home sp4 Problem: new sp4 Symptoms: have improved sp4 Condition: Stable sp4 Diagnosis - Liver mass with local metastatic disease, acute cancer pain sp4 - Multiple pulmonary nodules sp4 Followup: sp4 - With: Private Physician - When: 2 - 3 days - Reason: Recheck today's complaints Discharge Instructions: - Discharge Summary Sheet sp4 - Managing Cancer Pain sp4 Forms: - Patient Portal Instructions sp4 Prescriptions: - meloxicam 15 mg Oral tablet - take 1 tablet ORAL route daily PRN pain; 30 tablet; Refills: 0, Product sp4 Selection Permitted - promethazine 25 mg Oral tablet - take 1 tablet ORAL route every 6 hours As needed; 30 tablet; Refills: 0, sp4 Product Selection Permitted Signatures: Dispatcher [employer] EDBronwyn Fisher RN RN vc1 Tom Rushing MD MD sp4 Murray Mcneal RN RN tm6 Corrections: (The following items were deleted from the chart) 12/06 22:45 21:46 Abdomen Pelvis W Con+CT.RAD.BRZ ordered. EDMS EDMS 22:50 22:32 C-REACTIVE PROTEIN+C.LAB.BRZ ordered. EDMS EDMS
--- NOTE | 2023-12-08 02:10 | ER ---
Nurse's Notes [facility] Name: Rich Mota Jr Age: 68 yrs Sex: Male : 1955 Arrival Date: 12/07/2023 Time: 21:39 Bed 15 Private MD: Diagnosis: Liver mass with local metastatic disease, acute cancer pain;Multiple pulmonary nodules Presentation: 12/06 22:11 Chief complaint: Patient states: pain in right abdomen. Coronavirus screen: Client vc1 denies travel out of the [place] in the last 14 days. At this time, the client does not indicate any symptoms associated with coronavirus-19. Ebola Screen: Patient negative for fever greater than or equal to 101.5 degrees Fahrenheit, and additional compatible Ebola Virus Disease symptoms Patient denies exposure to infectious person. Patient denies travel to an Ebola-affected area in the 21 days before illness onset. No symptoms or risks identified at this time. Initial Sepsis Screen: Does the patient meet any 2 criteria? No. Patient's initial sepsis screen is negative. Does the patient have a suspected source of infection? No. Patient's initial sepsis screen is negative. Risk Assessment: Do you want to hurt yourself or someone else? Patient reports no desire to harm self or others. Note Pt has mass on liver. Onset of symptoms was December 07, 2023. Care prior to arrival: None. Activity prior to arrival: None. Mechanism of Injury: No Mechanism of Injury. Transition of care: patient was not received from another setting of care. 22:11 Method Of Arrival: Ambulatory vc1 22:11 Acuity: JULIA 3 vc1 Triage Assessment: 22:14 General: Appears in no apparent distress. uncomfortable, slender, Behavior is calm, vc1 cooperative, appropriate for age. Pain: Complains of pain in right upper quadrant Pain does not radiate. Pain currently is 5 out of 10 on a pain scale. at worst was 7 out of 10 on a pain scale. Quality of pain is described as sharp, stabbing, Pain began pain has been present for a while but today it is "excruciating". 22:18 Neuro: Level of Consciousness is awake, alert, obeys commands, Oriented to person, vc1 place, time, situation, Appropriate for age. Cardiovascular: Denies chest pain, Patient's skin is warm and dry. Respiratory: Airway is patent Respiratory effort is even, unlabored, Respiratory pattern is regular, symmetrical. GI: Abdomen is tender to palpation in right upper quadrant Mass noted in right upper quadrant Reports upper abdominal pain. Historical: - Allergies: 22:14 Iodine; vc1 22:14 SHELLFISH; vc1 - Home Meds: 22:14 lisinopril Oral [Active]; Flomax Oral [Active]; vc1 - PMHx: 22:14 Hepatitis C; Hypertensive disorder; prostate problems; Hepatocellular Carcinoma (2023); vc1 - PSHx: 22:14 right arm; vc1 - Immunization history:: Client reports having NOT received the Covid vaccine. Flu vaccine is up to date. - Infectious Disease History:: Denies. - Social history:: Smoking status: Patient reports the use of cigarette tobacco products, smokes one-half pack cigarettes per day. - Family history:: not pertinent. - Code Status:: Full code. Screenin:17 [facility] ED Fall Risk Assessment (Adult) History of falling in the last 3 months, vc1 including since admission No falls in past 3 months (0 pts) Confusion or Disorientation No (0 pts) Intoxicated or Sedated No (0 pts) Impaired Gait No (0 pts) Mobility Assist Device Used No (0 pt) Altered Elimination No (0 pt) Score/Fall Risk Level 0 - 2 = Low Risk Oriented to surroundings, Maintained a safe environment, Educated pt \\T\\ family on fall prevention, incl call for assistance when getting out of bed. Abuse screen: Denies threats or abuse. Nutritional screening: No deficits noted. Tuberculosis screening: No symptoms or risk factors identified. Assessment: 22:53 General: Appears uncomfortable, Behavior is calm, cooperative. Pain: Complains of pain tm6 in right upper quadrant Pain currently is 10 out of 10 on a pain scale. Quality of pain is described as stabbing. Neuro: Level of Consciousness is awake, alert, obeys commands, Oriented to person, place, time, situation. Cardiovascular: Patient's skin is warm and dry. Respiratory: Airway is patent Respiratory effort is even, unlabored, Respiratory pattern is regular, symmetrical. GI: Bowel sounds present X 4 quads. Abd is non tender Abd is rigid in right upper quadrant Reports upper abdominal pain. : No signs and/or symptoms were reported regarding the genitourinary system. EENT: No signs and/or symptoms were reported regarding the EENT system. Derm: No signs and/or symptoms reported regarding the dermatologic system. Musculoskeletal: No signs and/or symptoms reported regarding the musculoskeletal system. 12/07 00:12 Reassessment: Patient and/or family updated on plan of care and expected duration. Pain tm6 level reassessed. Patient is alert, oriented x 3, equal unlabored respirations, skin warm/dry/pink. Patient states feeling better. 01:51 Reassessment: Patient and/or family updated on plan of care and expected duration. Pain tm6 level reassessed. Patient is alert, oriented x 3, equal unlabored respirations, skin warm/dry/pink. 02:26 Reassessment: Patient appears in no apparent distress at this time. Patient and/or tm6 family updated on plan of care and expected duration. Pain level reassessed. Patient is alert, oriented x 3, equal unlabored respirations, skin warm/dry/pink. Vital Signs: 12/06 22:11 BP 197 / 125; Pulse 96; Resp 16; Temp 97; Pulse Ox 96% ; Weight 68.49 kg; Height 5 ft. vc1 10 in. ; Pain 5/10; 23:03 BP 155 / 109; Pulse 87; Resp 16; pm6 12/07 00:11 BP 138 / 103; Pulse 88; Resp 21; Pulse Ox 93% on R/A; tm6 01:50 BP 155 / 110; Pulse 78; Pulse Ox 93% on 2 lpm NC; tm6 02:26 BP 143 / 99; Pulse 90; Resp 18; Temp 97.8(TE); Pulse Ox 96% on R/A; Pain 2/10; tm6 12/06 22:11 Body Mass Index 21.67 (68.49 kg, 177.8 cm) vc1 12/06 22:11 Pain Scale: Adult vc1 02:26 Pain Scale: Adult tm6 12/06 22:11 Took Lisinopril before coming in vc1 ED Course: 21:42 Patient arrived in ED. jj6 21:44 Tom Rushing MD is Attending Physician. sp4 22:14 Triage completed. vc1 22:17 Arm band placed on left wrist. vc1 22:19 Patient has correct armband on for positive identification. Bed in low position. Call vc1 light in reach. Placed in gown. clinical data research on. Pulse ox on. NIBP on. : Inserted saline lock: 20 gauge in right antecubital area, using aseptic technique. pm6 Blood collected. 22: CBC with Diff Sent. pm6 : CMP Sent. pm6 : Lipase Sent. pm6 : Urinalysis w/ reflexes Sent. pm6 22:29 Murray Mcneal, RN is Primary Nurse. tm6 22:53 Provided Education on: plan of care. tm6 12/07 00:18 CT Chest, Abdomen, Pelvis - W/Contrast In Process Unspecified. EDMS 02:26 No provider procedures requiring assistance completed. IV discontinued, intact, tm6 bleeding controlled, No redness/swelling at site. Pressure dressing applied. Administered Medications: 12/06 22:52 Drug: morphine IVP or IV 8 mg IVP once over 4 mins Route: IVP; Infused Over: 4 mins; tm6 Site: right antecubital; 22:52 Drug: Famotidine IVP 20 mg IVP once; dilute with 10 mL 0.9% NaCl; give over 2 minutes tm6 Route: IVP; Site: right antecubital; 22:52 Drug: metoCLOPramide IVP 10 mg IVP once; over 1 to 2 minutes Route: IVP; Site: right tm6 antecubital; 22:53 Drug: Ondansetron IVP 4 mg IVP once; over 2 minutes Route: IVP; Site: right antecubital;tm6 22:53 Drug: NS 0.9% IV 1000 ml IV at 125 ml/hr continuous Route: IV; Rate: 125 ml/hr; Site: tm6 right antecubital; 12/07 02:28 Follow up: IV Status: Completed infusion; IV Intake: 750ml tm6 02:26 Drug: Salado PO 10 mg-325 mg 1 tabs PO once Route: PO; tm6 02:26 Drug: Promethazine PO 25 mg PO once Route: PO; tm6 Medication: 12/06 22:53 VIS not applicable for this client. tm6 Intake: 12/07 02:28 IV: 750ml; Total: 750ml. tm6 Outcome: 02:10 Discharge ordered by . sp4 02:27 Discharged to home ambulatory, tm6 02: Condition: stable 02:27 Discharge instructions given to patient, Instructed on discharge instructions, follow up and referral plans. medication usage, Demonstrated understanding of instructions, follow-up care, medications, Prescriptions given X 3, : Patient left the ED. tm6 Signatures: Dispatcher [employer] EDMS Vannessa De La Fuente jj6 Bronwyn Matias RN RN vc1 Tom Rushing MD MD sp4 Murray Mcneal RN RN tm6 Sue Miller pm6
[2023-12-08] MEDS ORDERED: PROMETHAZINE 25 MG TABLET ONE (02:17)
[2023-12-08] MEDS ORDERED: HYDROCODONE/APAP 10/325 TAB ONE (02:17)
[2023-12-08 02:58] VITALS: BP 143/99; TEMP 97.8; O2SAT 96
--- NOTE | 2023-12-08 11:14 | RAD REPORT ---
EXAM DESCRIPTION: CT - Chest Abdomen Pelvis W Cont - 12/08/2023 6:06 am CLINICAL HISTORY: The patient is 68 years old and is Male; liver mass, pain TECHNIQUE: Axial computed tomography images of the chest, abdomen and pelvis with intravenous contra st. Sagittal and coronal reformatted images were created and reviewed. This CT exam was performed using one or more of the following dose reduction techniques: automated exposure control, adjustme nt of the mA and/or kV according to patient size, and/or use of iterative reconstruction technique. COMPARISON: CT January 15, 2023 and September 30, 2021 FINDINGS: CHEST: LUNGS: The lungs are hyperinflated with mild emphysematous change. Atelectasis/scarring within th e right upper lobe medially and bilateral lower lobes is noted. There is no lobar consolidation or ma ss. A 0.6 cm left upper lobe pulmonary nodule is present. A 0.4 cm left lower lobe pulmonary nodule i s present. PLEURAL SPACE: Unremarkable. No significant effusion. No pneumothorax. HEART: No cardiomegaly. No pericardial effusion. ABDOMEN: LIVER: The liver is enlarged and heterogeneous. Several large masses throughout the liver are pre sent occupying the right hepatic lobe. Areas of central low attenuation within these masses are noted . The largest mass measures grossly 18.7 x 4.1 cm. A small amount of perihepatic fluid is noted. GALLBLADDER AND BILE DUCTS: No calcified stones. No ductal dilation. PANCREAS: No ductal dilation. No mass. SPLEEN: Unremarkable. ADRENALS: Unremarkable. No mass. KIDNEYS AND URETERS: Unremarkable. The kidneys enhance symmetrically. No obstructing renal or ure teral calculus is seen. No hydronephrosis or hydroureter. No perinephric fluid or stranding. On delay ed images, contrast is seen within the ureters. STOMACH AND BOWEL: The stomach is decompressed. The small bowel is normal in caliber. Stool is pr esent throughout the colon. Scattered colonic diverticula are noted without surrounding inflammation. There is no mucosal thickening or evidence of obstruction. PELVIS: APPENDIX: The appendix is normal in caliber without surrounding inflammation. BLADDER: The bladder is moderately distended. REPRODUCTIVE: Consultations are present within the prostate which are slightly heterogeneous. CHEST, ABDOMEN and PELVIS: INTRAPERITONEAL SPACE: Trace amount of free fluid is present within the pelvis. No free air. BONES/JOINTS: Multilevel degenerative change of the spine is present. There is no acute fracture of the visualized axial and appendicular skeleton. No lytic or blastic lesions are noted. SOFT TISSUES: There are small bilateral fat containing inguinal hernias. VASCULATURE: Unremarkable. No aortic aneurysm. LYMPH NODES: Small mediastinal lymph nodes are present. IMPRESSION: 1. Significantly enlarged liver with multiple heterogeneous masses occupying the right hepatic lobe. Trace perihepatic fluid is present. Findings are most suggestive of malignancy/metasta tic disease. This was not definitively present on the prior examinations. Further evaluation is warra nted. 2. Pulmonary nodules. Per Fleischner Society Guidelines, recommend a non-contrast Chest CT at 3-6 m onths, then another non-contrast Chest CT at 18-24 months. These guidelines do not apply to immunocompromised patients and patients with cancer. Follow up in pa tients with significant comorbidities as clinically warranted. For lung cancer screening, adhere to L umesh-RADS guidelines. Reference: Radiology. 2017; 284(1):228-43. Electronically signed by: Pign Garay MD 12/08/2023 12:38 AM CDT Due to temporary technical issues with the PACS/Fluency reporting system, reports are being signed by the in house radiologist without review as a courtesy to ensure prompt reporting. The interpreting r adiologist is fully responsible for the content of the report.
== END 2023-12-08 02:27 | disposition home or self-care (01) ==
LOC: ER 21:39
DX: G89.3 Neoplasm related pain (acute) (chronic) (principal); C22.0 Liver cell carcinoma; R91.8 Other nonspecific abnormal finding of lung field; I10 Essential (primary) hypertension; F17.210 Nicotine dependence, cigarettes, uncomplicated; Z91.013 Allergy to seafood; Z91.048 Other nonmedicinal substance allergy status
CPT/HCPCS: 96361; 85025; 81001; 36415; 83690; 80053; 86140; 71260; 74177; 96375; 96374; 99285; Q9967; Q0169; J2765; J2405; J7030

== ENCOUNTER 2023-12-08 13:50 | Emergency (ER) | payer OTHER ==
--- OUTSIDE RECORDS SUMMARY | 2023-12-08 13:52 | XMS REPORT | Clinical Summary ---
Author Name Unknown Organization [facility] Address [address] [place] [address] Care Team Providers Care [employer] Name Role Phone Unavailable Primary Care Provider Unavailabl e Encounters Date Type Department Care Team Description 11/02/2023 10:15 PM CDT Ancillary Procedure [facility] [address] [place] [address] [id number] Cancer 11/02/2023 10:10 PM CDT Ancillary Procedure [facility] [address] [place] [address] [id number] Cancer 11/02/2023 10:05 PM CDT Ancillary Procedure [facility] [address] [place] [address] 34666 Cancer 11/02/2023 10:00 PM CDT Ancillary Procedure [facility] [address] [place] [address] 88948 Cancer 11/02/2023 9:55 PM CDT Ancillary Procedure [facility] [address] [place] [address] 53014 Cancer 11/02/2023 9:50 PM CDT Ancillary Procedure [facility] [address] [place] [address] 64960 Cancer 11/02/2023 9:45 PM CDT Ancillary Procedure [facility] [address] [place] [address] 39826 Cancer 11/02/2023 9:40 PM CDT Ancillary Procedure [facility] [address] [place] [address] 76971 Cancer 11/02/2023 9:35 PM CDT Ancillary Procedure [facility] [address] [place] [address] 75074 Cancer 11/02/2023 9:30 PM CDT Ancillary Procedure [facility] [address] [place] [address] 98810 Cancer 11/02/2023 9:25 PM CDT Ancillary Procedure [facility] [address] [place] [address] 57036 Cancer 11/02/2023 9:20 PM CDT Ancillary Procedure [facility] [address] [place] [address] 88219 Cancer 11/02/2023 9:15 PM CDT Ancillary Procedure [facility] [address] [place] [address] 05446 Cancer 11/02/2023 9:10 PM CDT Ancillary Procedure [facility] [address] [place] [address] 83864 Cancer 11/02/2023 9:05 PM CDT Ancillary Procedure [facility] [address] [place] [address] 78192 Cancer 11/02/2023 9:00 PM CDT Ancillary Procedure [facility] [address] [place] [address] 76128 Cancer 11/02/2023 8:55 PM CDT Ancillary Procedure [facility] [address] [place] [address] 69525 Cancer 11/02/2023 8:50 PM CDT Ancillary Procedure [facility] [address] [place] [address] 63362 Cancer 11/02/2023 8:45 PM CDT Ancillary Procedure [facility] [address] [place] [address] 45951 Cancer 11/02/2023 8:40 PM CDT Ancillary Procedure [facility] [address] [place] [address] 61229 Cancer 11/02/2023 8:35 PM CDT Ancillary Procedure [facility] [address] [place] [address] 49938 Cancer 11/02/2023 8:30 PM CDT Ancillary Procedure [facility] [address] [place] [address] 07409 Cancer 11/02/2023 8:25 PM CDT Ancillary Procedure [facility] [address] [place] [address] 74055 Cancer 11/02/2023 8:20 PM CDT Ancillary Procedure [facility] [address] [place] [address] 29567 Cancer 11/02/2023 8:15 PM CDT Ancillary Procedure [facility] [address] [place] [address] 68697 Cancer 11/02/2023 8:10 PM CDT Ancillary Procedure [facility] [address] [place] [address] 86960 Cancer 11/02/2023 8:05 PM CDT Ancillary Procedure [facility] [address] [place] [address] 74698 Cancer 11/02/2023 8:00 PM CDT Ancillary Procedure [facility] [address] [place] [address] 27518 Cancer 10/17/2023 Travel after 12/08/2022 Social History Tobacco Use Types Packs/Day Years Used Date Smoking Tobacco: Never Assessed Sex and Gender Information Value Date Recorded Sex Assigned at Not on file Gender Identity Not on file Sexual Orientation Not on file Job Start Date Occupation Industry Not on file Not on file Not on file Plan of Treatment Health Maintenance Due Date Last Done Comments COVID-19 Vaccine (#1) 1955 Influenza Vaccine 04/18/2023 Procedures Procedure Name Priority Date/Time Associated Diagnosis Comments OSI CT CHEST Routine 07/19/2023 9:50 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 For comparison only. No [facility] originated interpretation requested or available. Britt Moreno MD IMG OUTSIDE STACY GE ORDERABLES after 12/08/2022
--- NOTE | 2023-12-08 14:21 | EDPHYS ---
Physician Documentation [facility] Name: Rich Mota Jr Age: 68 yrs Sex: Male : 1955 Arrival Date: 12/08/2023 Time: 13:50 Bed 16 Private MD: ED Physician Giorgi Yung HPI: 12/07 20:19 This 68 yrs old Male presents to ER via Ambulatory with complaints of Liver pain, ms3 Medication issue. 20:19 68 yo male with PMH of Hepatitis C, Hepatocellular Carcinoma, HTN, prostate problems ms3 presented to the ED for abdominal pain. Patient was seen earlier for same complaints. Patient states he was given a triplicate for pain medication and the pharmacy would not fill it due to his address being written in a different colored ink from the rest of the prescription. . Historical: - Allergies: 13:58 Iodine; rs5 13:58 SHELLFISH; rs5 - PMHx: 13:58 Hepatitis C; Hepatocellular Carcinoma (2023); Hypertensive disorder; prostate problems; rs5 - PSHx: 13:58 right arm; rs5 - Immunization history:: Adult Immunizations. - Infectious Disease History:: Denies. - Social history:: Smoking status: Patient reports the use of cigarette tobacco products, smokes one pack cigarettes per day. ROS: 20:19 Constitutional: Negative for fever, and chills. Cardiovascular: Negative for chest ms3 pain, and palpitations. Respiratory: Negative for shortness of breath, cough, wheezing, and pleuritic chest pain, 20:19 Abdomen/GI: Positive for abdominal pain, Exam: 20:19 Cardiovascular: Regular rate and rhythm with a normal S1 and S2. No gallops, murmurs, ms3 or rubs. Normal PMI, no JVD. No pulse deficits. Respiratory: Lungs have equal breath sounds bilaterally, clear to auscultation and percussion. No rales, rhonchi or wheezes noted. No increased work of breathing, no retractions or nasal flaring. 20:19 Abdomen/GI: Inspection: abdomen appears normal, Bowel sounds: normal, Palpation: moderate abdominal tenderness, in the right upper quadrant, Vital Signs: 13:57 BP 158 / 98; Pulse 102; Resp 18 S; Temp 97.8(TE); Pulse Ox 97% on R/A; Weight 72.57 kg aa5 (R); Height 5 ft. 10 in. (R); 14:02 BP 150 / 91; Pulse 80; Resp 18; Pulse Ox 99% on R/A; rs5 13:57 Body Mass Index 22.96 (72.57 kg, 177.8 cm) aa5 MDM: 14:21 Patient medically screened. ms3 20:19 Differential diagnosis: Hepatocellular carcinoma. Data reviewed: vital signs, nurses ms3 notes, and as a result, I will discharge patient. I considered the following discharge prescriptions or medication management in the emergency department Medications were administered in the Emergency Department. See MAR. Test considered but Not performed: Labs: labs preformed on previous visit. Other Details Imaging preformed on previous visit earlier in the day. Care significantly affected by the following chronic conditions: Hypertension, Cancer, Liver Disease. Counseling: I had a detailed discussion with the patient and/or guardian regarding the historical points, exam findings, and any diagnostic results supporting the discharge/admit diagnosis, the need for outpatient follow up, to return to the emergency department if symptoms worsen or persist or if there are any questions or concerns that arise at home. Special discussion: I discussed with the patient/guardian in detail that at this point there is no indication for admission to the hospital. It is understood, however, that if the symptoms persist or worsen the patient needs to return immediately for re-evaluation. ED course: Triplicate given by Dr Rushing destroyed and placed in shred box. Patient PDMP record reviewed and Nineveh 5/325 mg #30 prescribed. Patient to follow up with his oncologist as planned. Patient understands/ agreed with plan. All questions were answered. Return precautions discussed to include worsening symptoms, or any other concerns.. Administered Medications: 14:21 Drug: Nineveh PO 10 mg-325 mg 1 tabs PO once Route: PO; rs5 Disposition: 20:31 Chart complete. ms3 Disposition Summary: 12/08/23 14:21 Discharge Ordered Notes: Location: Home ms3 Condition: Stable ms3 Diagnosis - Liver mass ms3 - Abdominal pain ms3 - Pulmonary Nodules ms3 Followup: ms3 - With: Private Physician - When: 2 - 3 days - Reason: Recheck today's complaints Discharge Instructions: - Discharge Summary Sheet ms3 - Abdominal Pain, Adult ms3 - Liver Cancer ms3 Forms: - Medication Reconciliation Form ms3 - Thank You Letter ms3 - Antibiotic Education ms3 - Prescription Opioid Use ms3 - Patient Portal Instructions ms3 - Leadership Thank You Letter ms3 Prescriptions: - Hydrocodone-Acetaminophen 5-325 mg Oral tablet - take 1 tablet ORAL route every 6 hours As needed 1-2 tablets q 6 hours prn ms3 pain; 30 tablet; Refills: 0, Product Selection Permitted Signatures: Giorgi Yung, DO ms3 Laron Santiago RN RN rs5
--- NOTE | 2023-12-08 14:21 | ER ---
Nurse's Notes [facility] Name: Rich Mota Jr Age: 68 yrs Sex: Male : 1955 Arrival Date: 12/08/2023 Time: 13:50 Bed 16 Private MD: Diagnosis: Liver mass;Abdominal pain;Pulmonary Nodules Presentation: 12/07 13:57 Chief complaint: Chief complaint: Patient states: "I need pain killers". Pt reports aa5 being seen here earlier today and prescribed Tol[place], states " but the pharmacy won't fill it". 13:57 Acuity: JULIA 5 aa5 13:57 Coronavirus screen: At this time, the client does not indicate any symptoms associated aa5 with coronavirus-19. Ebola Screen: Patient denies travel to an Ebola-affected area in the 21 days before illness onset. Initial Sepsis Screen: Does the patient meet any 2 criteria? HR > 90 bpm. Does the patient have a suspected source of infection? No. Patient's initial sepsis screen is negative. Risk Assessment: Do you want to hurt yourself or someone else? Patient reports no desire to harm self or others. Onset of symptoms was 2023. 13:57 Method Of Arrival: Ambulatory aa5 Historical: - Allergies: 13:58 Iodine; rs5 13:58 SHELLFISH; rs5 - PMHx: 13:58 Hepatitis C; Hepatocellular Carcinoma (2023); Hypertensive disorder; prostate problems; rs5 - PSHx: 13:58 right arm; rs5 - Immunization history:: Adult Immunizations. - Infectious Disease History:: Denies. - Social history:: Smoking status: Patient reports the use of cigarette tobacco products, smokes one pack cigarettes per day. Screenin:00 [facility] ED Fall Risk Assessment (Adult) History of falling in the last 3 months, rs5 including since admission No falls in past 3 months (0 pts) Confusion or Disorientation No (0 pts) Intoxicated or Sedated No (0 pts) Impaired Gait No (0 pts) Mobility Assist Device Used No (0 pt) Altered Elimination No (0 pt) Score/Fall Risk Level 0 - 2 = Low Risk Oriented to surroundings, Maintained a safe environment. Abuse screen: Denies threats or abuse. Nutritional screening: No deficits noted. Tuberculosis screening: No symptoms or risk factors identified. Assessment: 14:00 General: Appears in no apparent distress. uncomfortable, Behavior is calm, cooperative. rs5 Pain: Complains of pain in abdomen Pain currently is 7 out of 10 on a pain scale. Quality of pain is described as aching, Is continuous. Neuro: Level of Consciousness is awake, alert, obeys commands, Oriented to person, place, time, situation. Vital Signs: 13:57 BP 158 / 98; Pulse 102; Resp 18 S; Temp 97.8(TE); Pulse Ox 97% on R/A; Weight 72.57 kg aa5 (R); Height 5 ft. 10 in. (R); 14:02 BP 150 / 91; Pulse 80; Resp 18; Pulse Ox 99% on R/A; rs5 13:57 Body Mass Index 22.96 (72.57 kg, 177.8 cm) aa5 ED Course: 13:51 Patient arrived in ED. im 13:57 Arm band placed on Patient placed in an exam room, on a stretcher. aa5 14:00 Giorgi Yung DO is Attending Physician. ms3 14:00 Patient has correct armband on for positive identification. Placed in gown. Bed in low rs5 position. Call light in reach. Side rails up X2. 14:00 No provider procedures requiring assistance completed. rs5 14:23 Laron Santiago, YUNIOR is Primary Nurse. rs5 14:42 IV discontinued, intact, bleeding controlled, No redness/swelling at site. Pressure rs5 dressing applied. 14:45 Triage completed. aa5 Administered Medications: 14:21 Drug: Tolland PO 10 mg-325 mg 1 tabs PO once Route: PO; rs5 Medication: 14:50 VIS not applicable for this client. rs5 Outcome: 14:21 Discharge ordered by . ms3 14:42 Discharged to home ambulatory, rs5 14:42 Condition: stable rs5 14:42 Discharge instructions given to patient, family, Instructed on discharge instructions, follow up and referral plans. Demonstrated understanding of instructions, follow-up care, 14:48 Patient left the ED. rs5 Signatures: Olivia Mclaughlin RN RN aa5 Giorgi Yung DO DO ms3 Laron Santiago RN RN rs5 Bess Benjamin im Corrections: (The following items were deleted from the chart) 14:45 13:57 Chief complaint: aa5 aa5 14:47 13:57 Initial Sepsis Screen: Does the patient meet any 2 criteria? No. Patient's aa5 initial sepsis screen is negative. Does the patient have a suspected source of infection? No. Patient's initial sepsis screen is negative. aa5
[2023-12-08] MEDS ORDERED: HYDROCODONE/APAP 10/325 TAB ONE (14:26)
[2023-12-08 15:07] VITALS: BP 158/98; TEMP 97.8; O2SAT 97
== END 2023-12-08 14:48 | disposition home or self-care (01) ==
LOC: ER 13:50
DX: R10.11 Right upper quadrant pain (principal); C22.0 Liver cell carcinoma; R91.8 Other nonspecific abnormal finding of lung field; F17.210 Nicotine dependence, cigarettes, uncomplicated; Z91.013 Allergy to seafood; Z91.048 Other nonmedicinal substance allergy status
CPT/HCPCS: 99283